=== PATIENT | female | born 1975 | race Caucasian/White ===

== ENCOUNTER 2019-11-24 18:02 | Outpatient (CLI) | payer OTHER, SELFPAY ==
--- NOTE | 2019-11-24 18:25 | XRR_ITS ---
PROCEDURE INFORMATION: Exam: XR Right Foot Exam date and time: 11/24/2019 6:34 PM Age: 43 years old Clinical indication: Pain; Toes; Right; Additional info: 2nd digit pain TECHNIQUE: Imaging protocol: XR Right foot. Views: Frontal and lateral views. COMPARISON: MRI Foot w/o RIGHT* [id number] 08/27/2019 7:28 AM FINDINGS: Bones/joints: Healing 3rd digit proximal metaphyseal fracture, with relatively mature periosteal reaction. Fifth distal interphalangeal joint fusion, a normal variant. Soft tissues: Normal. Other findings: No specific 2nd digit abnormality identified, as visualized XR/XR foot RT 2V [id number] IMPRESSION: Subacute 3rd proximal phalangeal fracture. .
== END 2019-11-24 18:03 | disposition home or self-care (01) ==
PROVIDERS: Family Provider Registered Nurse; PCP Registered Nurse; Visit Provider Registered Nurse
DX: S92.911A Unspecified fracture of right toe(s), initial encounter for closed fracture (principal); X58.XXXA Exposure to other specified factors, initial encounter
CPT/HCPCS: 73620

== ENCOUNTER 2019-11-25 16:16 | Outpatient (CLI) | payer OTHER, SELFPAY ==
--- NOTE | 2019-11-25 16:00 | MR_ITS ---
WS: [id number] MRI RIGHT FOOT without CONTRAST. COMPARISON: 08/27/2019, foot radiograph 11/24/2019 Multiplanar, multisequence imaging is performed without contrast. Partially healed fracture involving the proximal phalanx of the third toe. Decreased T1 and proton de nsity signal throughout a large portion of the proximal phalanx. Minimal increased T2 signal suggesti ng healing. There is an increased T2 signal between the second and third proximal phalanges along the plantar surface. This is just slightly position posterior to the second toe. This area of increased T2 and STIR signal measures 10 x 5 mm. Mass is closely associated and abutting the LEFT interdigital nerve. No erosions or new fractures. MR/MR foot RT wo con* [id number] IMPRESSION: 1. Healing proximal third phalanx fracture. 2. No new fracture. 3. Soft tissue nodule between the second and third proximal phalanges measures 10 x 5 mm. Abuts the second interdigital nerve. MRI appearance of a Mann's n euroma although this is positioned more between the proximal phalanges and the metatarsal heads.
== END 2019-11-25 16:17 | disposition home or self-care (01) ==
LOC: RADSHAW 16:19
PROVIDERS: Family Provider Registered Nurse; PCP Registered Nurse; Visit Provider Registered Nurse
DX: S92.911A Unspecified fracture of right toe(s), initial encounter for closed fracture (principal); X58.XXXA Exposure to other specified factors, initial encounter
CPT/HCPCS: 73718

== ENCOUNTER → 2019-12-17 08:18 | Outpatient (BNVA) | payer OTHER, SELFPAY | PROVIDERS: Family Provider Registered Nurse; PCP Registered Nurse; Visit Provider Registered Nurse | DX: Z01.818 Encounter for other preprocedural examination (principal) | CPT/HCPCS: 80053; 85025 ==

== ENCOUNTER → 2020-02-02 11:20 | Outpatient (BNVA) | payer OTHER, SELFPAY | PROVIDERS: Family Provider Registered Nurse; PCP Registered Nurse; Visit Provider Obstetrics & Gynecology | DX: N87.1 Moderate cervical dysplasia (principal); N93.9 Abnormal uterine and vaginal bleeding, unspecified | CPT/HCPCS: 88175 ==

== ENCOUNTER → 2020-02-03 09:13 | Outpatient (BNVA) | payer OTHER, SELFPAY | PROVIDERS: Family Provider Registered Nurse; PCP Registered Nurse; Visit Provider Obstetrics & Gynecology | DX: N87.1 Moderate cervical dysplasia (principal) | CPT/HCPCS: 88305 ==

== ENCOUNTER 2020-02-18 06:42 | Day surgery (SDC) | payer OTHER, SELFPAY ==
[2020-02-17 10:41] VITALS: BMI 32.1
[2020-02-17 15:26] VITALS: BMI 31.8
--- NOTE | 2020-02-18 | SCC_ITS ---
Procedure Done: Excision of neuroma second intermetatarsal space right foot CPT code 42584. 10 seconds of fluoroscopic guidance, for a cumulative dose of 0.12 mGy, was provided to Dr. Velazquez by the radiology department. C-arm images of the RIGHT foot were saved for the patient's permanent record. [facility]
--- NOTE | 2020-02-18 | XR_ITS ---
WS: [id number] XR foot RT 2V [id number] REASON FOR EXAM: CORRECTION angular deformity 2nd right toe FINDINGS: A screws seen through the second proximal phalanx correcting the deformity previously descr ibed. XR/XR foot RT 2V [id number] IMPRESSION: Good positioning internal fixation of the proximal second phalanx.
--- NOTE | 2020-02-18 05:31 | P.HP_ITS ---
Providers/Chief Complaint Primary Care Provider: RADHA Roman Chief Complaint: lesion of plantar nerve right History of Present Illness Shena Avelar is a 44 year old female with recalcitrant right forefoot pain. Patient has had pain at her right second metatarsal phalangeal joint with a progression of a deformity where the second toe is elevating and overriding medially over the hallux. She has pain with everyday activities. Previous treatments have consisted of NSAIDs, activity modifications including decreased exercise regimens, offloading with cam boot as well as strap down splinting without relief. Patient's MRI is consistent with possible Mann's neuroma at the right foot second intermetatarsal space this area is less painful for her however this is symptomatic Review of Systems General: Reports: 10 or more systems reviewed and unremarkable except in HPI and below Const: Denies: fever or chills Eyes: Denies: change in vision Card: Denies: chest pain or palpitations Resp: Denies: shortness of breath or productive cough GI: Denies: abdominal pain, nausea or vomiting : Denies: flank pain Musc: Reports: extremity pain, joint pain, joint stiffness, limited range of motion and deformity Skin/Breast: Reports: skin tenderness; Denies: rash Neuro: Reports: difficulty walking; Denies: numbness in extremities, changes in sensation or frequent falls Psych: Denies: suicidal ideation Riley/Lymph: Denies: easy bruising Medications/Allergies Home Medications Medication Instructions Recorded Confirmed Last Taken Type fluoxetine 20 mg capsule 20 mg PO DAILY 11/04/19 02/18/20 02/18/20 History baclofen 10 mg tablet 10 mg PO TID 30 Days #90 tab 01/05/20 02/18/20 02/18/20 Rx telmisartan 20 mg tablet 10 mg PO DAILY tab 02/16/20 02/18/20 02/18/20 History Allergies Allergy/AdvReac Type Severity Reaction Status Date / Time No Known Allergies Allergy Verified 02/18/20 07:05 PFSH PFSH: Social History Smoking and tobacco status: never smoked Alcohol intake: never Additional social history: - Tobacco Use: Denies current or past use Alcohol Use: Drinks socially; one drink every 2-3 months on average Drug Use: Denies Work/Study Status: 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 The following is a focused bilateral lower extremity exam. VASCULAR: Dorsalis pedis and posterior tibial arteries palpable +2. Capillary refill time less than 3 seconds to the distal hallux bilaterally. Calf is supple and nontender proximally and distally. No pedal edema appreciated. Pedal hair growth present. NEUROLOGICAL: Epicritic and protopathic sensations grossly intact to the lower extremities. +2 Achilles tendon reflex noted bilaterally. Negative Tinel sign upon percussion of lower extremity nerves. Protective sensation intact with monofilament right forefoot however there is a diminished sensation at the right second toe compared to adjacent toes. DERMATOLOGICAL: Lower extremity skin is well-hydrated, normal texture and turgor. There are no open sores or lesions noted to the lower extremities. No erythema or ecchymosis present to the bilateral legs and feet. MUSCULOSKELETAL: Pain to palpation at right second intermetatarsal space with dorsal and plantar pressure. Positive Marla's click. Pain with [id number] compression of the second and third metatarsal heads. No pain to palpation at right third proximal phalanx base. Muscle strength is 5 out of 5 in all 3 cardinal planes to right foot and ankle. Const: COMMON NORMALS: no apparent distress, oriented x3 and alert Lymph: LYMPHATIC: No lymphedema Resp: COMMON NORMALS: normal respiratory effort, no use of accessory muscles and clear to auscultation bilaterally EFFORT & INSPECTION: Yes able to speak in complete sentences Cardio: COMMON NORMALS: regular rate, regular rhythm, S1 normal heart sound, S2 normal heart sound, no murmurs and peripheral pulses 2+ throughout Extremity: COMMON NORMALS: normal capillary refill, no calf tenderness and no pedal edema GENERAL: No edema, No pulses abnormal and Yes monofilament exam performed RIGHT LOWER EXTREMITY: Yes ankle joint and Yes foot & digits Neuro: COMMON NORMALS: oriented x3 SENSORIUM/ORIENTATION: Yes alert GAIT: Yes normal gait and No assistive device used SENSORY EXAM: Yes extremities MOTOR EXAM: strength 5/5 throughout Skin: HAIR: normal NAILS: normal A&P Assessment and plan (1) Hammertoe of second toe of right foot: Status: Acute (2) Metatarsalgia, right foot: Status: Acute (3) Mann's neuroma of second interspace of right foot: Status: Acute Patient examined and evaluated, findings and treatment options discussed with patient at length. Despite conservative treatment consisting of activity modifications, stretching exercises, [id number] NSAIDs, offloading with cam boot and strapped on splinting she has had persistent pain and symptomatic to the point where it affects her everyday life. Recommending surgical repair at this time consisting of primary repair of the plantar plate right second metatarsal phalangeal joint, correction of angular deformity of right second hammertoe and possible Mann's neuroma excision versus tenolysis. Patient is agreeable and wishes to proceed. Can be performed risks include pain, bleeding, numbness, infection, swelling, bruising, painful scar, failure to alleviate pain, failure to correct deformity and recurrence of deformity, damage to adjac ent soft tissue structures and need for further surgical intervention. Surgery can be performed under MAC anesthesia outpatient with local block at the right foot. Duration of surgery approximately 90 minutes. 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
[2020-02-18 07:04] VITALS: BP 119/73; PULSE 83; RESP 18; TEMP 36.3; O2SAT 97
[2020-02-18 07:12] LABS: OR HCG Qualitative Urine Negative (Negative)
--- NOTE | 2020-02-18 07:34 | P.ANESASSM_ITS ---
Pre-Anesthetic Assessment Pre-Anesthetic Assessment: Height/Weight: Height 1.6 m Weight 81.647 kg Temp Pulse Resp BP Pulse Ox 97.4 F L 83 18 119/73 97 02/18/20 07:04 02/18/20 07:04 02/18/20 07:04 02/18/20 07:04 02/18/20 07:04 Preop Diagnosis: Hammertoe deformity right second toe, Mann's neuroma right second interspace Proposed Procedure: Operation Date: 02/18/20 08:10 Proposed Procedures p Correction of angular deformity second toe with poss neuroma excision right foot [id number] 45658 G57.61(Right) - Patricio Velazquez DPM Familial anesthetic complications: PONV, scopolamine patch worked Was Beta Cosme taken within 24 hours: N/A Last intake: Intake NPO > 8 hrs Last Liquid Date 02/17/20 Last Solid Date 02/17/20 Social: Social History: No alcohol and No tobacco Exam: Pre-Anes Outpt Exam: alert, oriented x 3, clear to auscultation bilaterally and regular rate & rhythm Airway: Cervical ROM: WNL MP: 1 Dentition: Full Pulmonary: Pulmonary: None reported CV/HEM: CV/HEM: HTN : : None reported Hepatic: Hepatic: None reported GI: GI: None reported Metabolic: Metabolic: None reported Musc/skel: Comments: R 2nd toe neuroma Neuropsych: Neuropsych: None reported Anesthetic Plan: ASA status: 2 Anesthesia: MAC Risk of > 500 ml blood loss (7ml/kg in children): No PFSH Anesthesia PFSH: Social History Smoking and tobacco status: never smoked Alcohol intake: never Additional social history: - Tobacco Use: Denies current or past use Alcohol Use: Drinks socially; one drink every 2-3 months on average Drug Use: Denies Work/Study Status: 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
--- NOTE | 2020-02-18 07:53 | W.PM.OPSUD ---
Surgery/Procedure H&P Update DATE OF PROCEDURE: February 18, 2020 DATE H&P PERFORMED: 02/18/20 H&P UPDATE INFORMATION: I have reviewed H&P completed within last 30 days, I have examined patient prior to procedure, No changes to prior documentation and H&P is in [facility] on date indicated PREOP DIAGNOSIS: Hammertoe deformity right second toe, Mann's neuroma right second interspace PLANNED PROCEDURE: Operation Date: 02/18/20 08:10 Proposed Procedures p Correction of angular deformity second toe with poss neuroma excision right foot [id number] G57.61(Right) - Patricio Velazquez DPM
[2020-02-18] MEDS: sodium chloride 0.9% 1,000 ML 30 ML IV (08:02)
[2020-02-18] MEDS: scopolamine 1.5 Patch 1 PATCH TRANSDERMA (08:06)
[2020-02-18 09:36] VITALS: BP 112/65; PULSE 85; RESP 18; TEMP 36.8; O2SAT 95
[2020-02-18 10:15] VITALS: BP 110/77; PULSE 71; RESP 18; O2SAT 97
--- NOTE | 2020-02-20 21:25 | PM.OP ---
Operative Report Date of procedure: February 18, 2020 Pre-op Diagnosis: Hammertoe deformity right second toe, Mann's neuroma right second interspace Post-op diagnosis: same Post-op Findings: Plantar plate tear right second metatarsal phalangeal joint. Mann's neuroma right second intermetatarsal space. Procedure Done: Excision of neuroma second intermetatarsal space right foot CPT code 13527. Correction of angular deformity right second toe CPT code 67943. Implants: [place] 28 TenoTac Specimens removed/disposition: Right second intermetatarsal space neuroma sent to pathology Pathology: Right second intermetatarsal space neuroma sent to pathology for review Surgeon: Patricio Velazquez D.P.M. Vice President Talent Management: James Anesthesia: MAC Estimated blood loss: 2 mL IV fluids: None Urine output: None Complications: None Findings: Neuroma right foot second intermetatarsal space. Plantar plate tear with angular deformity of the right second toe deviating medially and dorsally overriding the great toe. Condition: stable Disposition: PACU Brief History: Ms. Avelar is a pleasant 44-year-old female has had persistent pain to the right forefoot. She has failed conservative treatment consisting of offloading, decreased activity, NSAIDs, toe alignment splints, supportive shoes with orthotics as well as offloading with cam boot. She has had a progressive deformity of her right second toe that has begun to override the hallux this is painful for her she also on MRI it has findings consistent with Mann's neuroma this correlates clinically to pain at the second intermetatarsal space with positive Marla's click. At this point given her poor response to conservative measures recommending excision of Mann's neuroma right second metatarsal space along with correction of hammertoe angular deformity with primary plantar plate repair of the second metatarsal phalangeal joint. Procedure: Under mild sedation the patient was brought to the operating room and placed on the operating table in supine position. A timeout was performed. Anesthesia was then administered by the anesthesia service. Local anesthesia was injected by myself consisting of 20 cc of 0.5% Marcaine plain and a second ray block fashion. Well-padded pneumatic tourniquet was applied to the right ankle. Right lower extremity was then scrubbed, prepped and draped utilizing normal aseptic technique. Right foot was examined a weighted with an Esmarch bandage and the tourniquet was inflated to 250 mmHg. Attention was directed to the plantar aspect of the right forefoot where a linear longitudinal incision was made subsecond metatarsal head with dissection carried down through the fat pad and down to the second metatarsal phalangeal joint plantar capsule and plantar plate structure utilizing a combination of sharp and blunt technique. Care was taken to retract and preserve all neurovascular and tendinous structures. All bleeders were ligated and cauterized as necessary. Self-retaining retractor was employed to maintain visualization of vital structures there was a attenuation of the lateral collateral ligaments and plantar plate at the plantar lateral aspect of the second metatarsal phalangeal joint fibrotic tissue was sharply excised and primary repair was performed with a single interrupted suture. [place] 28 TenoTac was also employed to augment the repair with a flexor tendon transfer utilizing manufacture technique the TenoTac was inserted at the metaphyseal flare of the proximal phalanx second digit with realignment of the flexor tendons in a position to bolster the repair and additional correction of the angular deformity that was fully reduced in all 3 cardinal planes of the second toe. Dissection was carried somewhat laterally and the second intermetatarsal nerve was visualized at the bifurcation it was bulbous and consistent with Mann's neuroma this was transected at its most distal and proximal margins and sent to pathology for review. Incision site was dressed with copious amounts of sterile saline solution. Placement of TenoTac was visualized on 3 views fluoroscopy and noted to be excellent with improved position of the second toe. 10 cc of Exparel was introduced at the medial and lateral aspect of the incision subcutaneously utilizing recommended technique. Incision was closed in a single layer skin only with 3-0 Prolene this was by design to reduce inflammatory response and aid in pain-free cicatrix when healing at the plantar forefoot. Incision site was dressed with Adaptic, sterile 4 x 4's, Kerlix followed by application of well-padded multilayer compressive posterior splint with foot in neutral position and ankle neutral position. Tourniquet was deflated and a prompt hyperemic response was noted to all distal digits of the right foot. Patient tolerated the procedure well and was transferred to the PACU with vital signs stable and vascular status intact. Following a period of postoperative monitoring she will be discharged home is to remain strict nonweightbearing elevate her right foot at all times while at rest. Was given my cell phone number and is to contact with any postoperative questions or concerns. Was also given a prescription for pain medication to be taken judiciously.
== END 2020-02-18 10:15 | disposition home or self-care (01) ==
PROVIDERS: Anesthesiology; PCP Registered Nurse; Visit Provider Podiatrist Foot & Ankle Surgery
PROC: (CPT 28296; principal; 2020-02-18 08:05)
PROC: (CPT 28080; 2020-02-18 08:05)
DX: M20.41 Other hammer toe(s) (acquired), right foot (principal); G57.61 Lesion of plantar nerve, right lower limb; I10 Essential (primary) hypertension
CPT/HCPCS: 28313; 64782; 12345; 73620; 76000; 81025; 84703; C1713; C9290; J0690; J1100; J2001; J2250; J2405; J2704; J3490; J7030

== ENCOUNTER → 2020-03-16 13:38 | Outpatient (BNVA) | payer OTHER, SELFPAY | PROVIDERS: PCP Registered Nurse; Visit Provider Podiatrist Foot & Ankle Surgery | DX: Z98.890 Other specified postprocedural states (principal); S92.911A Unspecified fracture of right toe(s), initial encounter for closed fracture; X58.XXXA Exposure to other specified factors, initial encounter | CPT/HCPCS: 73630 ==

== ENCOUNTER → 2020-03-23 08:37 | Outpatient (BNVA) | payer OTHER, SELFPAY | PROVIDERS: PCP Registered Nurse; Visit Provider Podiatrist Foot & Ankle Surgery | DX: M79.671 Pain in right foot (principal); S92.911A Unspecified fracture of right toe(s), initial encounter for closed fracture; X58.XXXA Exposure to other specified factors, initial encounter | CPT/HCPCS: 73630 ==

== ENCOUNTER 2020-04-13 10:33 | Inpatient (IN) | payer OTHER, SELFPAY ==
[2020-04-11 10:51] LABS: OR HCG Qualitative Urine Negative (Negative)
[2020-04-11 11:02] LABS: Basophils % 0.3 %; Eosinophils # 0.1 10^3/uL (0.0-0.8); Eosinophils % 0.8 %; Hematocrit 42.4 % (37.0-47.0); Hemoglobin 13.3 g/dL (11.5-15.3); Lymphocytes # 2.7 10^3/uL (0.8-4.8); Lymphocytes % 27.2 %; Mean Corpuscular HGB Conc 31.4 g/dL (30.0-36.0); Mean Corpuscular Hemoglobin 30.1 pg (28.0-34.0); Mean Corpuscular Volume 95.9 fL (81-99); Mean Platelet Volume 9.3 fL (7.4-10.4); Monocytes # 0.7 10^3/uL (0.2-0.9); Monocytes % 7.2 %; Neutrophils # 6.3 10^3/uL (1.8-7.7); Neutrophils % 64.2 %; Nucleated Red Blood Cells % 0 %; Platelet Count 391 10^3/cmm (130-400); Red Blood Count 4.42 10^6/uL (4.1-5.3); White Blood Count 9.9 10^3/uL (4.0-10.0)
[2020-04-11 11:08] LABS: Alanine Aminotransferase 17 U/L (0-33); Alkaline Phosphatase 67 IU/L (35-105); Anion Gap 15.8 (5-19); Aspartate Amino Transferase 18 U/L (0-32); Blood Urea Nitrogen 11 mg/dL (6-20); Calcium 9.5 mg/dL (8.5-10.5); Carbon Dioxide 27 mmol/L (22-29); Chloride 99 mmol/L (98-107); Globulin 3.3 g/dL (1.3-4.6); Glomerular Filtration Rate 90.5 mL/min (90-130); Glucose 79 mg/dL (65-115); Osmolality Calculated 281 mOsm/kg (285-295); Potassium 3.8 mmol/L (3.5-5.1); Sodium 138 mmol/L (136-145); Total Bilirubin 0.2 mg/dL (0.15-1.2); Total Protein 7.3 g/dL (6.6-8.7)
--- NOTE | 2020-04-11 12:09 | P.ANESASSM_ITS ---
Pre-Anesthetic Assessment Pre-Anesthetic Assessment: Height/Weight: Height 1.6 m Weight 81.647 kg Preop Diagnosis: Menorrhagia, dysmenorrhea, ANGELINE-2 Proposed Procedure: Operation Date: 04/13/20 07:00 Proposed Procedures p Total Laparoscopic Hysterectomy 08335 48313 43921 N93.9 N87.1(Not Applicable) - Bertin Kirk MD s Possible Total Abdominal Hysterectomy(Not Applicable) - Bertin Kirk MD s Bilateral salpingectomy, possible bilateral oophorectomy, 50227(Not Applicable) - Bertin Kirk MD Familial anesthetic complications: PONV Was Beta Cosme taken within 24 hours: N/A Social: Social History: No alcohol and No tobacco Exam: Pre-Anes Outpt Exam: alert, oriented x 3, clear to auscultation bilaterally and regular rate & rhythm Airway: Submandibular: WNL Cervical ROM: WNL MP: 2 Dentition: Full History/ROS: No significant history except as noted Pulmonary: Pulmonary: None reported CV/HEM: CV/HEM: HTN : : None reported Hepatic: Hepatic: None reported GI: GI: None reported Metabolic: Metabolic: None reported Musc/skel: Musc/skel: None reported Neuropsych: Neuropsych: None reported Anesthetic Plan: ASA status: 2 Anesthesia: Anesthesia Evaluation and General Risk of > 500 ml blood loss (7ml/kg in children): No PFSH Anesthesia PFSH: Medical History Abnormal uterine bleeding Has been having symptoms since approximately 2005 getting worse over time. Evaluation was negative. ANGELINE II (cervical intraepithelial neoplasia II) Status post LEEP-currently undergoing follow-up Pap smears Hypertension Diagnosed with hypertension in 2017 and is controlled on medication managed by primary care provider No pertinent past medical history Patient denies history of PE/DVT/clotting disorders, asthma, lung, liver heart, thyroid, kidney disease, or diabetes. Primary care provider: RADHA Roman Surgical History Hx of bilateral breast reduction surgery In 2009 Hx of section x 3 1996, 2001, 2005 Hx of toe surgery 02/25/2020 for fractured toe; ORIF S/P abdominoplasty (~12/24/19) Performed by Dr. Hernandez in [place] S/P LEEP (~02/04/19) LEEP procedure performed on 02/04/[address] Cruz [address] [facility] for persistent ANGELINE-1. Pathology showed ANGELINE-2 with positive margins S/P tonsillectomy Performed at the age of 4 S/P tubal ligation (~2005) Performed at the time of her third in 2005 Family History Mother Hypertension Mother Hyperlipidemia Grandfather Prostate cancer Paternal Denies family history of Colon cancer Ovarian cancer Diabetes Heart disease Breast cancer Uterine cancer Thyroid condition Stroke Social History Smoking and tobacco status: never smoked Alcohol intake: never Additional social history: - Tobacco Use: Denies current or past use Alcohol Use: Drinks socially; one drink every 2-3 months on average Drug Use: Denies Work/Study Status: 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 Female Reproductive History: Date of last menstrual period: 04/11/20 Data Anesthesia CBC & Chem 7: 04/11/20 10:30 04/11/20 10:30 Other Labs: Laboratory Results - last 48 hr 04/11/20 04/11/20 04/11/20 10:17 10:30 10:30 WBC 9.9 RBC 4.42 Hgb 13.3 Hct 42.4 MCV 95.9 MCH 30.1 MCHC 31.4 RDW 13.0 Plt Count 391 MPV 9.3 Neut % (Auto) 64.2 Lymph % (Auto) 27.2 [place] % (Auto) 7.2 Eos % (Auto) 0.8 Baso % (Auto) 0.3 Neut # (Auto) 6.3 Lymph # (Auto) 2.7 [place] # (Auto) 0.7 Eos # (Auto) 0.1 Baso # (Auto) 0.0 Nucleated RBC % (auto) 0 Nucleated RBCs # 0.0 Sodium 138 Potassium 3.8 Chloride 99 Carbon Dioxide 27 Anion Gap 15.8 BUN 11 Creatinine 0.7 GFR Calculation 90.5 Glucose 79 Calculated Osmolality 281 L Calcium 9.5 Total Bilirubin 0.2 AST 18 ALT 17 Alkaline Phosphatase 67 Total Protein 7.3 Albumin 4.0 Globulin 3.3 Urine HCG, Qual Negative Blood Type Rho(D) Type Antibody Screen 04/11/20 10:30 WBC RBC Hgb Hct MCV MCH MCHC RDW Plt Count MPV Neut % (Auto) Lymph % (Auto) [place] % (Auto) Eos % (Auto) Baso % (Auto) Neut # (Auto) Lymph # (Auto) [place] # (Auto) Eos # (Auto) Baso # (Auto) Nucleated RBC % (auto) Nucleated RBCs # Sodium Potassium Chloride Carbon Dioxide Anion Gap BUN Creatinine GFR Calculation Glucose Calculated Osmolality Calcium Total Bilirubin AST ALT Alkaline Phosphatase Total Protein Albumin Globulin Urine HCG, Qual Blood Type O Positive Rho(D) Type Positive Antibody Screen Negative Cardiac Studies: No Data to Display
[2020-04-13] VITALS (24 sets, daily range): BP systolic 98–130; BP diastolic 60–81; PULSE 60–88; RESP 12–20; TEMP 36.4–36.9; O2SAT 92–100
[2020-04-13] MEDS: sodium chloride 0.9% 1,000 ML 30 ML IV (06:15)
--- NOTE | 2020-04-13 06:25 | P.ANESUD_ITS ---
Pre-Anesthetic Update Pre-Anesthetic Assessment: Date of Surgery/Procedure: 04/13/20 Preop Jemima gnosis: Hammertoe deformity right second toe, Mann's neuroma right second interspace Proposed Procedure: Operation Date: 04/13/20 07:00 Proposed Procedures p Total Laparoscopic Hysterectomy 15952 66452 22508 N93.9 N87.1(Not Applicable) - Bertin Kirk MD s Possible Total Abdominal Hysterectomy(Not Applicable) - Bertin Kirk MD s Bilateral salpingectomy, possible bilateral oophorectomy, 06354(Not Applicable) - Bertin Kirk MD Any changes to Pre-Anesthetic Assessment?: No Last Intake: Intake Last Liquid Date 04/12/20 Last Liquid Time 23:45 Last Solid Date 04/12/20 Last Solid Time 19:00 Labs Last 48hrs: Laboratory Results - last 48 hr 04/11/20 04/11/20 04/11/20 10:17 10:30 10:30 WBC 9.9 RBC 4.42 Hgb 13.3 Hct 42.4 MCV 95.9 MCH 30.1 MCHC 31.4 RDW 13.0 Plt Count 391 MPV 9.3 Neut % (Auto) 64.2 Lymph % (Auto) 27.2 [place] % (Auto) 7.2 Eos % (Auto) 0.8 Baso % (Auto) 0.3 Neut # (Auto) 6.3 Lymph # (Auto) 2.7 [place] # (Auto) 0.7 Eos # (Auto) 0.1 Baso # (Auto) 0.0 Nucleated RBC % (a uto) 0 Nucleated RBCs # 0.0 Sodium 138 Potassium 3.8 Chloride 99 Carbon Dioxide 27 Anion Gap 15.8 BUN 11 Creatinine 0.7 GFR Calculation 90.5 Glucose 79 Calculated Osmolal ity 281 L Calcium 9.5 Total Bilirubin 0.2 AST 18 ALT 17 Alkaline Phosphata se 67 Total Protein 7.3 Albumin 4.0 Globulin 3.3 Urine HCG, Qual Negative Blood Type Rho(D) Type Antibody Screen 04/11/20 10:30 WBC RBC Hgb Hct MCV MCH MCHC RDW Plt Count MPV Neut % (Auto) Lymph % (Auto) [place] % (Auto) Eos % (Auto) Baso % (Auto) Neut # (Auto) Lymph # (Auto) [place] # (Auto) Eos # (Auto) Baso # (Auto) Nucleated RBC % (a uto) Nucleated RBCs # Sodium Potassium Chloride Carbon Dioxide Anion Gap BUN Creatinine GFR Calculation Glucose Calculated Osmolal ity Calcium Total Bilirubin AST ALT Alkaline Phosphata se Total Protein Albumin Globulin Urine HCG, Qual Blood Type O Positive Rho(D) Type Positive Antibody Screen Negative Vitals: Temperature 98.5 F 04/13/20 05:58 Temperature Source Temporal Artery S can 04/13/20 05:58 Pulse Rate 72 04/13/20 05:58 Respiratory Rate 16 04/13/20 05:58 Blood Pressure 119/74 04/13/20 05:58 Blood Pressure Soc[place] n 89 04/13/20 05:58 Pulse Oximetry 98 04/13/20 05:58 Oxygen Delivery Me thod 04/13/20 05:58 Exam: Pre-Anes Outpt Exam: alert, oriented x 3, clear to auscultation bilaterally and regular rate & rhythm Other Pertinent Information: Other Pertinent Information: Phentermine taken 10 days ago Cardiac Studies: No Data to Display
--- NOTE | 2020-04-13 06:58 | P.HPUD_ITS ---
Surgery/Procedure H&P Update DATE OF PROCEDURE: April 13, 2020 DATE H&P PERFORMED: 03/28/20 H&P UPDATE INFORMATION: I have reviewed H&P completed within last 30 days, I have examined patient prior to procedure, No changes to prior documentation and [place] is in [facility] [place] indicated PREOP DIAGNOSIS: AUB, ANGELINE 2 PLANNED PROCEDURE: Operation Date: 04/13/20 07:00 Proposed Procedures p Total Laparoscopic Hysterectomy [id number] N93.9 N87.1(Not Applicable) - Bertin Kirk MD s Possible Total Abdominal Hysterectomy(Not Applicable) - Bertin Kirk MD s Bilateral salpingectomy, possible bilateral oophorectomy, 03677(Not Applicable) - Bertin Kirk MD
--- NOTE | 2020-04-13 08:17 | SUR.OPER ---
0746 s/o updated of surgical status
--- NOTE | 2020-04-13 08:45 | SUR.OPER ---
0845 s/o updated of surgical status.
--- NOTE | 2020-04-13 09:56 | SUR.OPER ---
0952 s/o updated of surgical status
--- NOTE | 2020-04-13 10:31 | P.OP_ITS ---
Operative Report Date of procedure: April 13, 2020 OPERATIVE REPORT Date of surgery: 04/13/2020 Date of dictation: 04/13/2020 Preoperative diagnosis: 44-year-old 5 para 3-0-2-3, abnormal uterine bleeding-adenomyosis, ANGELINE 2 with persistent abnormal Pap smears; history of abdominoplasty and 3 C-sections. History of tubal ligation. Postoperative diagnosis/findings: 10-week size anteverted uterus, normal ovaries bilaterally with tubes showing signs of previous surgery. Dense adhesions of the bladder onto the uterus. Dense additions of the fascia and rectus muscles from prior abdominoplasty. Procedure done: Total abdominal hysterectomy, left salpingo-oophorectomy, right salpingectomy Specimens removed/disposition of specimens: Uterus, cervix, bilateral tubes and left ovary Surgeon: Dr. Bertin Cruz acute care certified nursing assistant: María Telles Anesthesia: General endotracheal tube anesthesia Estimated blood loss: 300 ml Intravenous fluids: 1700 mL of LR Urine output: 400 mL of urine at the end of procedure. Medications: As per anesthesia records Complications: None, patient was extubated and taken to the recovery room in a stable condition PROCEDURE: After consent was obtained patient was taken to the operating room where she was placed under general anesthesia. Sequential compression boots was placed. Pelvic exam done showed limited mobility of the uterus and on detailed examination of the abdomen given her abdominoplasty and change location of the umbilicus and short infraumbilical space decision was made to avoid laparoscopic surgery and perform open hysterectomy. Patient's leg were placed in supine position after vaginal prep and Mallory catheter were placed. She was prepped and draped in the usual sterile fashion in a dorsal supine position. A Pfannenstiel incision was made and it was carried down to the underlying fascia immediately below her abdominoplasty scar. A lot of oozing was noted in the subcutaneous plane which was cauterized with silver nitrate. Once the subcutaneous plane was entered there was a pocket of clear serous fluid-probably seroma from previous abdominoplasty. The fascia was identified. Fascia was incised in the midline and extended laterally sharply. Rectus muscles were in the midline. This was difficult given her previous abdominal surgery-abdominoplasty and multiple adhesions. Peritoneum was identified and was sharply entered. This area was palpated and no adhesions were noted intra- abdominally to the anterior abdominal wall. Peritoneal incision was extended laterally. Good hemostasis was achieved. A O'Roque retractor was then placed and the bowel was packed away in the upper abdomen with wet laparotomy sponges. Care was taken to avoid any pressure points on the skin. The pelvis was inspected. Uterus appeared normal with tubes showing signs of previous surgery and normal ovaries with a left ovary containing a simple cyst-likely follicular cyst. No other abnormalities were noted other than what was mentioned previously. The left ovarian vessels were identified and a window was made in the broad ligament under this and the abdominal [place]ouyant clamped over the IP ligament and was cauterized close to the ovary twice taking care to stay away from the sidewall and the ureter. Good hemostasis was achieved. The right round ligament was clamped cut and suture ligated with 0 Vicryl suture. This is again done on the left side without any difficulty. -Using the abdominal Vuoyant and trying to stay close to the uterus we proceeded in a caudal fashion through the broad ligament up until the lower uterine segment. The broad ligament incision was extended inferiorly and carried over the lower uterine segment. Dense lesions were noted from the bladder onto the lower uterine segment from her previous surgeries and sharp dissection was used in this area to help separate the bladder away from the uterus and cervix. The bladder was noted to be intact without any tears. The uterine vessels were skeletonized clamped and tied off with suture. This was done first on the right and then on the left side without any difficulty. Using straight clamps we continued inferiorly clamping the parametria, cutting and suture ligating this area until the bottom of the cervix was reached. At this point, sharply curved clamps were placed across the top of the vagina and the remaining portion of the cervix excised. With this the uterus and cervix, right fallopian tube remnant and the left fallopian tube and ovary were removed. The cervix was inspected and noted to be complete. The corners of the cuff were secured with 0 Vicryl suture in a Shannon fashion bilaterally taking care to avoid lateral spread. The remaining portion of the vaginal cuff was closed with 0 Vicryl suture in an interrupted [id number]-rz-[id number] fashion. The area was thoroughly inspected hemostasis was achieved with utjuhj-cm-ejosv sutures. There was some oozing noted from the posterior aspect of the bladder where extensive adhesio lysis had been done. Decision was made to back for the bladder and it was backfilled with 250 to 300 mL of indigo stained fluid and the bladder was noted to be well distended. No spillage of dye was noted and no defects identified in the bladder. Bilateral ureters were visualized and good peristalsis was noted. The pelvis was irrigated once again and small area of oozing near the left was made hemostatic with a vxxdlj-ss-jjanx suture. With this good hemostasis was achieved. Surgicel was placed over the vaginal cuff. Surgicel was also placed over the posterior aspect of the bladder. Good hemostasis was noted within the pelvis. The packing and retractor was removed. The rectus muscle was reapproximated with mattress sutures and good hemostasis was achieved and the rectus muscle layer. The fascia was then closed with oh loop PDS in a continuous fashion and good reapproximation was obtained. The subcutaneous layer was irrigated and noted to be hemostatic. It was reapproximated using 2-0 plain sutures in a continuous fashion. This was done in 2 layers. The skin was then reapproximated in a subcuticular fashion using 4-0 Monocryl. Pressure dressing was applied onto the abdomen. Lap, instrument and needle counts were correct x2. Patient was extubated without difficulty and taken to the recovery room in a stable condition. Mallory catheter was left in place. Pre-op Diagnosis: AUB, ANGELINE 2
--- NOTE | 2020-04-13 10:49 | SUR.PHASEI ---
1049- ORAL AIRWAY OUT, SIMPLE MASK AT 6LPM, SAT 100%
[2020-04-13] MEDS: sodium chloride 0.9% 1,000 ML 125 ML (11:37)
[2020-04-13] MEDS: HYDROmorphone 1 mg/mL INJ 1 mL 1.5 MG IVP ×2 (14:48→19:58)
[2020-04-13 16:48] LABS: Basophils % 0.1 %; Hematocrit 39.3 % (37.0-47.0); Hemoglobin 12.3 g/dL (11.5-15.3); Lymphocytes # 0.5 10^3/uL (0.8-4.8); Lymphocytes % 2.4 %; Mean Corpuscular HGB Conc 31.3 g/dL (30.0-36.0); Mean Corpuscular Hemoglobin 29.6 pg (28.0-34.0); Mean Corpuscular Volume 94.7 fL (81-99); Mean Platelet Volume 9.5 fL (7.4-10.4); Monocytes # 0.2 10^3/uL (0.2-0.9); Monocytes % 0.9 %; Neutrophils # 18.6 10^3/uL (1.8-7.7); Neutrophils % 96.2 %; Nucleated Red Blood Cells % 0 %; Platelet Count 350 10^3/cmm (130-400); Red Blood Count 4.15 10^6/uL (4.1-5.3); Red Cell Distribution Width 13.1 % (12.1-15.1); White Blood Count 19.3 10^3/uL (4.0-10.0)
[2020-04-13] MEDS: dextrose 5%-lactated ringers 1,000 ML 125 ML IV (19:56)
[2020-04-13] MEDS: ondansetron 2 mg/ML SDV 2 mL 4 MG IVP (20:15)
[2020-04-14] MEDS: ondansetron 2 mg/ML SDV 2 mL 4 MG IVP ×2 (01:08→06:52)
[2020-04-14 01:11] VITALS: RESP 16
[2020-04-14] MEDS: HYDROmorphone 1 mg/mL INJ 1 mL 1.5 MG IVP ×2 (01:11→08:42)
[2020-04-14] MEDS: dextrose 5%-lactated ringers 1,000 ML 125 ML IV ×3 (03:44→19:23)
[2020-04-14 04:00] VITALS: BP 115/75; PULSE 66; RESP 16; TEMP 36.7; O2SAT 99
[2020-04-14 04:20] LABS: Hematocrit 35.8 % (37.0-47.0); Hemoglobin 11.1 g/dL (11.5-15.3); Mean Corpuscular Hemoglobin 29.4 pg (28.0-34.0); Mean Platelet Volume 9.2 fL (7.4-10.4); Platelet Count 351 10^3/cmm (130-400); Red Blood Count 3.77 10^6/uL (4.1-5.3); Red Cell Distribution Width 13.3 % (12.1-15.1); White Blood Count 14.2 10^3/uL (4.0-10.0)
[2020-04-14 08:27] VITALS: PULSE 84; RESP 16; O2SAT 97
[2020-04-14 08:42] VITALS: RESP 16; O2SAT 95
[2020-04-14 08:53] VITALS: BP 117/77; PULSE 69; RESP 15; TEMP 36.7; O2SAT 94
--- NOTE | 2020-04-14 11:25 | PC.NURSE ---
Patient ambulated 3 laps in hallway, tolerated well. Denied feeling any dizziness, weakness or lightheadedness. Patient said it feels better being up than it does being in bed. Patient decided to brush her teeth after she ambulated back to her room.
--- NOTE | 2020-04-14 13:12 | PC.NURSE ---
Assisted patient with putting on the abdominal binder at this time.
--- NOTE | 2020-04-14 14:23 | P.PN_ITS ---
Subjective Subjective: Interval history: - SUBJECTIVE- Ms. Avelar is feeling okay today. She is a little tired. Nausea has improved since this morning. She denies any vomiting. Has not yet passed flatus but is burping. Catheter and SCDs are in place. She is ambulated a little bit this morning. Feels a lot less groggy today compared to yesterday. She denies fever , chills, shortness of breath and chest pain. She does report having a headache and has just taken ibuprofen about 30 minutes ago to help with this. She does use the incentive spirometer. OBJECTIVE- BLOOD pressure-117/77 mmHg Pulse-69 beats per minute Temperature-98.1 Fahrenheit Abdomen-soft, nontender, no rebound, no guarding-hypoactive bowel sounds Incision: Clean dry and intact with Steri-Strips Legs: No calf tenderness, no edema. ASSESSMENT AND PLAN: 44-year-old 3 para 3-0-0-3 status post total abdominal hysterectomy left salpingo-oophorectomy and right salpingectomy for ANGELINE-2/AUB---Postoperative day #1 -Continue routine care -She is ambulated only a little today-she was encouraged to take 5 more laps around the nurses station and at that point we will plan on discontinuing the Mallory catheter. If she is unable to void after removal of Mallory catheter it may be replaced and she understands this. -Details of surgery reviewed with patient. -Hypoactive bowel sounds and patient was a little nauseous this morning-continue n.p.o. till she passes gas and will then advance diet to clear liquid diet. -P.o. pain medication with sips of fluid. Blood pressure is normal and we will restart blood pressure medication tomorrow once she tolerates p.o. -Hemoglobin stable-repeat CBC tomorrow morning -Anticipate discharge home in the next 1 to 2 days depending upon return to bowel function and how she does with pain. Vitals/I&O/Wt Last Vital Signs Temp 98.1 F 04/14/20 08:53 Pulse 69 04/14/20 08:53 Resp 15 04/14/20 08:53 BP 117/77 04/14/20 08:53 Pulse Ox 94 04/14/20 08:53 04/13/20 04/14/20 04/14/20 22:59 06:59 14:59 Intake Total 339.583 / 8496.622 9076.083 / 2666.666 833.333 / 833.333 Output Total 700 / 1850 400 / 2250 1275 / 1275 Balance -360.417 / -938.136 9773.083 / 416.666 -441.667 / -441.667 Physical Exam Urinary Catheter Management^: Mallory: Cath Placed During This Visit: yes Urinary Catheter Date of Insertion: 04/13/20 Urinary Catheter Time of Insertion: 07:35 Data : 04/14/20 03:53 04/11/20 10:30 Attestations Medical Necessity Statement*: Patient will need to stay for the next 2 to 3 days to recover from open surgery. 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
[2020-04-14] MEDS: HYDROcodone-acetaminophen 5-325 mg Tablet PO ×2 (16:17→22:24)
[2020-04-14 16:18] VITALS: BP 138/84; PULSE 88; RESP 18; TEMP 36.8; O2SAT 96
--- NOTE | 2020-04-14 20:06 | PC.NURSE ---
1st post-void residual at 1930 after voiding 150ml - 28ml via bladder scanner
[2020-04-15 04:10] VITALS: BP 142/84; PULSE 92; RESP 16; TEMP 36.7
[2020-04-15] MEDS: dextrose 5%-lactated ringers 1,000 ML 125 ML IV (04:14)
[2020-04-15 05:59] LABS: Basophils % 0.2 %; Eosinophils # 0.1 10^3/uL (0.0-0.8); Eosinophils % 0.6 %; Hematocrit 36.8 % (37.0-47.0); Hemoglobin 11.3 g/dL (11.5-15.3); Lymphocytes # 2.5 10^3/uL (0.8-4.8); Lymphocytes % 22.7 %; Mean Corpuscular HGB Conc 30.7 g/dL (30.0-36.0); Mean Corpuscular Hemoglobin 29.4 pg (28.0-34.0); Mean Corpuscular Volume 95.8 fL (81-99); Monocytes # 0.8 10^3/uL (0.2-0.9); Monocytes % 7.7 %; Neutrophils # 7.4 10^3/uL (1.8-7.7); Neutrophils % 68.5 %; Nucleated Red Blood Cells % 0 %; Platelet Count 363 10^3/cmm (130-400); Red Blood Count 3.84 10^6/uL (4.1-5.3); Red Cell Distribution Width 13.4 % (12.1-15.1); White Blood Count 10.8 10^3/uL (4.0-10.0)
[2020-04-15] MEDS: docusate sodium 100 mg Capsule PO ×2 (08:24→17:48)
[2020-04-15 08:36] VITALS: BP 146/88
[2020-04-15] MEDS: losartan 50 mg Tablet PO (08:36)
[2020-04-15] MEDS: fluoxetine 20 mg Capsule PO (09:16)
[2020-04-15 11:42] VITALS: BP 145/86; PULSE 73; RESP 18; TEMP 36.6; O2SAT 97
--- NOTE | 2020-04-15 16:00 | P.PN_ITS ---
Subjective Subjective: Interval history: Ms. Avelar is feeling much better today. She is ambulated well and has been consistently passing flatus. She has tolerated clears without any difficulty and denies any nausea today. She feels much better after having a shower. Denies calf pain, fever, chills, nausea, vomiting, shortness of breath or chest pain. Would like to restart her fluoxetine. She has been voiding without difficulty since catheter removal and continues to have SCDs while in bed. No other questions or concerns. Pain is well controlled with p.o. pain medication. OBJECTIVE- BLOOD pressure-140/78 mmHg Pulse-88 beats per minute Temperature-98.1 Fahrenheit Abdomen-soft, nontender, no rebound, no guarding-normoactive bowel sounds Incision: Clean dry and intact with Steri-Strips Legs: No calf tenderness, no edema. ASSESSMENT AND PLAN: 44-year-old 3 para 3-0-0-3 status post total abdominal hysterectomy left salpingo-oophorectomy and right salpingectomy for ANGELINE-2/AUB---Postoperative day #2 -Continue routine care -Encourage continued ambulation. -Mallory catheter has been discontinued with normal post void residuals. -Normoactive bowel sounds and patient is passing flatus-tolerating clears well will advance to full liquid diet and if tolerated well will advance to regular diet. -Continue p.o. pain medication and discontinue IV -Hemoglobin stable-white count within normal limits. Do not anticipate any further blood work during this hospitalization -Anticipate discharge home tomorrow if advance of diet goes without any problems. Vitals/I&O/Wt Last Vital Signs Temp 98.1 F 04/15/20 20:30 Pulse 88 04/16/20 05:39 Resp 16 04/16/20 05:39 BP 139/88 04/16/20 05:39 Pulse Ox 99 04/15/20 16:12 04/15/20 04/16/20 04/16/20 22:59 06:59 14:59 Intake Total 980 / 2462.084 Output Total 1050 / 2550 Balance -70 / -87.916 Physical Exam Urinary Catheter Management^: Mallory: Cath Placed During This Visit: yes, but has since been removed by the nurse Reason for Continuing Indwelling Catheter: Decision to DC Catheter Urinary Catheter Date of Insertion: 04/13/20 Urinary Catheter Time of Insertion: 07:35 Date Urinary Catheter Removed: 04/14/20 Time Urinary Catheter Discontinued: 18:09 Data : 04/15/20 04:15 04/11/20 10:30 Attestations Medical Necessity Statement*: Patient will likely need to stay 1 more day for postoperative recovery 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
[2020-04-15 16:12] VITALS: BP 146/88; PULSE 68; RESP 16; TEMP 36.8; O2SAT 99
[2020-04-15] MEDS: HYDROcodone-acetaminophen 5-325 mg Tablet PO (17:52)
[2020-04-15 20:30] VITALS: BP 119/72; PULSE 83; RESP 18; TEMP 36.7
[2020-04-16 05:39] VITALS: BP 139/88; PULSE 88; RESP 16
--- NOTE | 2020-04-16 07:31 | PM.DCS ---
Discharge Providers Date of Admission: 04/13/20 10:33 Date of Discharge: April 16, 2020 Attending Provider at Admission: Bertin Kirk MD Attending Provider at Discharge: Bertin Kirk MD Primary Care Provider: RADHA Roman Diagnoses at Discharge Discharge Diagnosis (1) ANGELINE II (cervical intraepithelial neoplasia II): Status: Acute Problem details: Status post LEEP-currently undergoing follow-up Pap smears (2) Abnormal uterine bleeding: Status: Acute Problem details: Has been having symptoms since approximately 2005 getting worse over time. Evaluation was negative. Reason for Visit Reason for Visit: abnormal uterine bleeding Hospital Course Discharge Summary: Ms. Avelar is a 44-year-old 3 para 3-0-0-3 who presented on 04/13/2020 for scheduled hysterectomy for abnormal uterine bleeding as well as persistent ANGELINE-2 despite LEEP procedure. She had no new complaints on the day of procedure. HOSPITAL COURSE: She underwent an uncomplicated total abdominal hysterectomy, bilateral salpingectomy with left oophorectomy on 04/13/2020-see operative report for details. She did well on postoperative day 0 and was largely groggy and was out of bed to chair and n.p.o. She was advanced to clears but was nauseous and was returned back to n.p.o. status until return of bowel activity. On postoperative day #1 she was ambulating well, tolerating clear liquid diet. Pain was well-controlled with by mouth and IV pain medication. She denied nausea, vomiting, fever, chills, shortness of breath, leg pain. She had minimal vaginal bleeding. Mallory catheter was kept overnight and she had adequate urine output. On postoperative day #1 and 2 she continued to do well with stable vital signs and stable hemoglobin at 11. Incision was clean dry and intact with Steri-Strips. Mallory catheter was removed and patient was able to void with minimal residual noted on bladder scan. She ambulated well started passing flatus and then was given a clear liquid diet. On postoperative day 2 in the evening she was advanced to regular diet which she tolerated well. She was discharged home on postoperative day #3 in a stable condition. Warning signs for wound infection, cuff infection, DVT/PE were reviewed with her. Post surgical activity restrictions were also reviewed with her at all her questions were answered to her satisfaction. EXAM AT DISCHARGE: Gen.: No acute distress Heart: S1-S2 heard, regular rate and rhythm Lungs: Clear to auscultation bilaterally Abdomen: Soft, nondistended, normoactive bowel sounds, minimal tenderness around incision. Incision: Clean dry and intact with Steri-Strips. Legs: No calf tenderness, no pedal edema. CONDITION AT DISCHARGE: Stable Physical Exam Urinary Catheter Management^: Mallory: Cath Placed During This Visit: yes, but has since been removed by the nurse Reason for Continuing Indwelling Catheter: Decision to DC Catheter Urinary Catheter Date of Insertion: 04/13/20 Urinary Catheter Time of Insertion: 07:35 Date Urinary Catheter Removed: 04/14/20 Time Urinary Catheter Discontinued: 18:09 Discharge Data Data Completed and Pending: Pending at discharge Category Date Time Status Pathology: Surgic al [PTH] Routine Pth 04/13/20 10:05 Ordered Vitals: Last Vital Signs Temp 98.1 F 04/15/20 20:30 Pulse 88 04/16/20 05:39 Resp 16 04/16/20 05:39 BP 139/88 04/16/20 05:39 Pulse Ox 99 04/15/20 16:12 Discharge Plan Discharge Patient Disposition: Home, Self-Care Prescriptions: No Action telmisartan [Micardis] 20 mg tablet 10 mg PO DAILY RF: 0 baclofen 10 mg tablet 10 mg PO TID 30 Days Qty: 90 RF: 3 phentermine 37.5 mg capsule 37.5 mg PO DAILY PRN (Reason: Weight Gain) RF: 0 (DME) crutch Misc See Rx Instructions .ROUTE .MEDSUPPLY Qty: 2 RF: 0 fluoxetine [Prozac] 20 mg capsule 20 mg PO DAILY Qty: 90 RF: 0 Patient Instructions: Fluoxetine (By mouth), Baclofen (By mouth), Phentermine (By mouth), Telmisartan (By mouth), Abdominal Hysterectomy (DC), General Anesthesia (GEN), Open Salpingo-oophorectomy (DC), OB Discharge Report, OB Food/Drug Interaction Guide Discharge Attestations Time Spent in Discharge Care*: greater than 30 min Quality Metrics Clinical Quality Measures During this hospital stay, did patient experience: None Coding Level of Care Code 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
[2020-04-16 08:13] VITALS: BP 130/86
[2020-04-16] MEDS: docusate sodium 100 mg Capsule PO (08:13)
[2020-04-16] MEDS: losartan 50 mg Tablet PO (08:13)
[2020-04-16] MEDS: HYDROcodone-acetaminophen 5-325 mg Tablet PO (08:14)
[2020-04-16] MEDS: fluoxetine 20 mg Capsule PO (08:14)
[2020-04-16 08:16] VITALS: BP 130/86; PULSE 80; RESP 16; TEMP 36.7; O2SAT 98
== END 2020-04-16 10:00 | disposition home or self-care (01) | DRG 743 ==
LOC: OBGYN 14:07
PROVIDERS: Admitting Provider Obstetrics & Gynecology; PCP Registered Nurse; Visit Provider Obstetrics & Gynecology
PROC: 0UT90ZZ Resection of Uterus, Open Approach (ICD-10-PCS; CPT 58150; 2020-04-13 07:00)
PROC: 0UT90ZZ Resection of Uterus, Open Approach (ICD-10-PCS; CPT 58720; 2020-04-13 07:00)
DX: N93.9 Abnormal uterine and vaginal bleeding, unspecified (principal); N87.1 Moderate cervical dysplasia; I10 Essential (primary) hypertension
CPT/HCPCS: 12345; 36415; 80053; 81025; 84703; 85025; 85027; 86850; 86900; 88307; 96375; J0131; J0690; J1100; J1170; J2001; J2250; J2405; J2550; J2704; J2710; J3010; J3490; J7030

== ENCOUNTER 2020-06-02 05:43 | Day surgery (SDC) | payer OTHER, SELFPAY ==
[2020-06-01 09:18] VITALS: BMI 31.8
--- NOTE | 2020-06-02 | XR_ITS ---
WS: [id number] EXAM: FLUOROSCOPY FOR VISUALIZATION DURING RIGHT FIRST RAY BUNION SURGERY AND HALLUX VALGUS REDUCTION DATE OF EXAMINATION: 06/02/2020, 0807 hours COMPARISON: Right foot films from 03/23/2020 HISTORY: Patient is 44 years old with right foot deformity FLUOROSCOPY TIME: 4 seconds FINDINGS: Fluoroscopy provided to the surgical service for visualization during right first ray surgery. Post s urgical changes of a shaving osteotomy of the medial first metatarsal head as well as osteotomy with fixation screws is seen. Osteotomy involving the proximal phalanx of the great toe with bone staple i n place. [place] also placed in the second metatarsal head for presumed osteotomy with shift procedure . Please see operative report for further details. XR/XR toe RT min 2V [id number] IMPRESSION: Fluoroscopy provided to the surgical service for visualization during right gre at toe surgery. Dedicated post procedure imaging recommended.
--- NOTE | 2020-06-02 | SCC_ITS ---
Procedure Done: Right bunionectomy with double osteotomy CPT code 31138 4 seconds of fluoroscopic guidance, for a cumulative dose of 0.6 mGy, was provided to Dr. Velazquez by the radiology department. C-arm images of the RIGHT toe were saved for the patient's permanent record. [facility] HOSPITALAdeline
[2020-06-02 05:53] VITALS: BP 119/88; PULSE 83; RESP 18; TEMP 36.3; O2SAT 98
[2020-06-02] MEDS: sodium chloride 0.9% 1,000 ML 30 ML IV (06:05)
[2020-06-02] MEDS: scopolamine 1.5 Patch 1 PATCH TRANSDERMA (06:09)
--- NOTE | 2020-06-02 06:34 | PM.OPSURHP ---
Providers/Chief Complaint Primary Care Provider: RADHA Roman Chief Complaint: Bunion Right bunion. Right hammertoe second toe. History of Present Illness Ms. Avelar is a pleasant 44-year-old female with history of painful bunion and hammertoe of the right foot. History of right second hammertoe correction with recurrence of deformity. She is seen bedside in preop for updated H&P and surgical intervention. She has been n.p.o. since midnight. Review of Systems General: Reports: 10 or more systems reviewed and unremarkable except in HPI and below Const: Denies: fever(s) or chills Eyes: Denies: change in vision Card: Denies: chest pain or palpitations Resp: Denies: dyspnea or productive cough GI: Denies: abdominal pain, nausea or vomiting : Denies: flank pain Musc: Reports: extremity pain, joint pain, joint stiffness, limited range of motion and deformity Skin/Breast: Reports: skin tenderness; Denies: rash Neuro: Reports: difficulty walking; Denies: numbness in extremities, sensory changes or frequent falls Psych: Denies: suicidal ideation Riley/Lymph: Denies: easy bruising Medications/Allergies Home Medications Medication Instructions Recorded Confirmed Last Taken Type telmisartan 20 mg tablet 10 mg PO DAILY #45 tab 04/20/20 06/01/20 06/01/20 Rx baclofen 10 mg tablet 10 mg PO TID 30 Days #90 tab 05/23/20 06/01/20 06/01/20 Rx fluoxetine 20 mg capsule 20 mg PO DAILY #90 cap 05/29/20 06/01/20 06/01/20 Rx Allergies Allergy/AdvReac Type Severity Reaction Status Date / Time No Known Allergies Allergy Verified 06/01/20 09:16 PFSH PFSH: Medical History ANGELINE II (cervical intraepithelial neoplasia II) Hypertension Diagnosed with hypertension in 2017 and is controlled on medication managed by primary care provider No pertinent past medical history Patient denies history of PE/DVT/clotting disorders, asthma, lung, liver heart, thyroid, kidney disease, or diabetes. Primary care provider: RADHA Roman Surgical History Hx of bilateral breast reduction surgery In 2009 Hx of section x 3 1996, 2001, 2005 Hx of toe surgery 02/25/2020 for fractured toe; ORIF S/P abdominoplasty (~12/24/19) Performed by Dr. Hernandez in [place] [employer] S/P hysterectomy 04/13/2020---Total abdominal hysterectomy with left salpingo-oophorectomy and right salpingectomy by Dr. Cruz at [facility]. -Pathology showed benign cervix, secretory endometrium without atypia, myometrium with adenomyosis and benign left ovary and fallopian tubes. Paratubal cysts present. S/P LEEP (~02/04/19) LEEP procedure performed on 02/04/[address] Cruz at [facility] for persistent ANGELINE-1. Pathology showed ANGELINE-2 with positive margins S/P tonsillectomy Performed at the age of 4 S/P tubal ligation (~2005) Performed at the time of her third in 2005 Family History Mother Hypertension Mother Hyperlipidemia Grandfather Prostate cancer Paternal Denies family history of Colon cancer Ovarian cancer Diabetes Heart disease Breast cancer Uterine cancer Thyroid condition Stroke Social History Smoking and tobacco status: never smoked Alcohol intake: never Female Reproductive History: Date of last menstrual period: 04/11/20 Vital Signs Vitals Signs: Last Vital Signs Temp 97.3 F L 06/02/20 05:53 Pulse 83 06/02/20 05:53 Resp 18 06/02/20 05:53 BP 119/88 06/02/20 05:53 Pulse Ox 98 06/02/20 05:53 Weight: Weight last 48 hrs Weight 180 lb Physical Exam Narrative: EXAM NARRATIVE: GENERAL: Patient is alert and oriented ?3 and in no acute distress. The following is a focused bilateral lower extremity exam. VASCULAR: Dorsalis pedis and posterior tibial arteries palpable +2. Capillary refill time less than 3 seconds to the distal hallux bilaterally. Calf is supple and nontender proximally and distally. No pedal edema appreciated. Pedal hair growth present. NEUROLOGICAL: Epicritic and protopathic sensations grossly intact to the lower extremities. +2 Achilles tendon reflex noted bilaterally. Negative Tinel sign upon percussion of lower extremity nerves. DERMATOLOGICAL: Lower extremity skin is well-hydrated, normal texture and turgor. There are no open sores or lesions noted to the lower extremities. No erythema or ecchymosis present to the bilateral legs and feet. MUSCULOSKELETAL: Hallux abductovalgus deformity with osseous prominence of dorsal medial aspect of the right first metatarsal phalangeal joint. Right first metatarsal phalangeal joint dorsiflexion 65 degrees, plantarflexion 40 degrees. Range of motion is without crepitus or pain. She has tenderness to palpation at the medial aspect of her bunion deformity. Hallux is not track bound. Mild collapse of the medial longitudinal arch which is fully re-created with elevation of the hallux. Mild pronation observed throughout the gait cycle with early heel off. Hammertoe deformity of the right second with transverse plane dominance is deviated medially this is reducible. Resp: COMMON NORMALS: normal respiratory effort, No retractions, No use of accessory muscles and clear to auscultation bilaterally EFFORT & INSPECTION: Yes able to speak in complete sentences and Yes symmetric chest movement Cardio: COMMON NORMALS: regular rate, regular rhythm, S2 normal heart sound present and Peripheral pulses 2+ throughout A&P Additional A&P Information atient examined and evaluated, weightbearing x-rays reviewed shows increased first intermetatarsal space and hallux abductovalgus deformity. Patient has transverse plane deformity of the right second toe. To address patient's host of complaints and bony deformities recommending bunionectomy, Ankur osteotomy and revisional plantar plate repair 06/02/20, can be performed outpatient, MAC anesthesia, will update H&P morning of surgery. Risks include pain, bleeding, numbness, infection, transfer pressure, delayed union, nonunion, hardware failure, hardware irritation, persistent swelling, decreased range of motion, avascular necrosis, damage to adjacent soft tissue structures, DVT, need for further surgical intervention. MAC anesthesia, duration of procedure 90 minutes, outpatient. Coding Level of Care Code Acute Master [place] for Chg Fwd Exam Expanded Problem Focused
--- NOTE | 2020-06-02 06:38 | P.HPUD_ITS ---
Surgery/Procedure H&P Update DATE OF PROCEDURE: June 02, 2020 DATE H&P PERFORMED: 06/02/20 H&P UPDATE INFORMATION: I have reviewed H&P completed within last 30 days, I have examined patient prior to procedure, No changes to prior documentation and H&P is in [facility] EMR on date indicated PREOP DIAGNOSIS: Bunion deformity, plantar plate tear and hammertoe deformity second toe all right foot. PLANNED PROCEDURE: Operation Date: 06/02/20 07:00 Proposed Procedures p Right bunionectomy with double osteotomy 20359 M21.611(Right) - Patricio Velazquez DPM s Right second metatarsal Ankur osteotomy 93367 M25.871(Right) - Patricio Velazquez DPM s Correction of angular deformity right second toe 49081 M20.41(Right) - Patricio Velazquez DPM
--- NOTE | 2020-06-02 06:38 | W.PM.OPSUD ---
Surgery/Procedure H&P Update DATE OF PROCEDURE: June 02, 2020 DATE H&P PERFORMED: 06/02/20 H&P UPDATE INFORMATION: I have reviewed H&P completed within last 30 days, I have examined patient prior to procedure, No changes to prior documentation and H&P is in [facility] EMR on date indicated PREOP DIAGNOSIS: Bunion deformity, plantar plate tear and hammertoe deformity second toe all right foot. PLANNED PROCEDURE: Operation Date: 06/02/20 07:00 Proposed Procedures p Right bunionectomy with double osteotomy 26504 M21.611(Right) - Patricio Velazquez DPM s Right second metatarsal Ankur osteotomy 83514 M25.871(Right) - Patricio Velazquez DPM s Correction of angular deformity right second toe 94230 M20.41(Right) - Patricio Velazquez DPM
--- NOTE | 2020-06-02 07:02 | ANES.PREANE2 ---
Pre-Anesthetic Assessment Pre-Anesthetic Assessment: Height/Weight: Height 1.6 m Weight 81.647 kg Temp Pulse Resp BP Pulse Ox 97.3 F L 83 18 119/88 98 06/02/20 05:53 06/02/20 05:53 06/02/20 05:53 06/02/20 05:53 06/02/20 05:53 Preop Diagnosis: Bunion deformity, plantar plate tear and hammertoe deformity second toe all right foot. Proposed Procedure: Operation Date: 06/02/20 07:00 Proposed Procedures p Right bunionectomy with double osteotomy 14413 M21.611(Right) - Patricio Velazquez DPM s Right second metatarsal Ankur osteotomy 56312 M25.871(Right) - Patricio Velazquez DPM s Correction of angular deformity right second toe 23765 M20.41(Right) - Patricio Velazquez DPM Was Beta Cosme taken within 24 hours: N/A Last intake: Intake Last Liquid Date 06/01/20 Last Liquid Time 20:30 Last Solid Date 06/01/20 Last Solid Time 19:00 Social: Social History: No alcohol and No tobacco Exam: Pre-Anes Outpt Exam: alert, oriented x 3, clear to auscultation bilaterally and regular rate & rhythm Airway: Submandibular: WNL Cervical ROM: WNL MP: 2 Dentition: Full Pulmonary: Pulmonary: None reported CV/HEM: CV/HEM: HTN : : None reported Hepatic: Hepatic: None reported GI: GI: None reported Metabolic: Metabolic: None reported Musc/skel: Musc/skel: None reported Neuropsych: Neuropsych: Depression Anesthetic Plan: ASA status: 2 Anesthesia: MAC Risk of > 500 ml blood loss (7ml/kg in children): No Meds/Allergies Current Medications: Current Medications Generic Name Dose Route Start Last Admin Trade Name Freq PRN Reason Stop Dose Admin Sodium Chloride 1,000 mls @ 30 ml s/hr 06/02/20 05:45 06/02/20 06:05 Sodium Chloride 0.9% IV 06/03/20 05:44 30 mls/hr .Q24H SUPRIYA Administration PFSH Anesthesia PFSH: Medical History ANGELINE II (cervical intraepithelial neoplasia II) Hypertension Diagnosed with hypertension in 2017 and is controlled on medication managed by primary care provider No pertinent past medical history Patient denies history of PE/DVT/clotting disorders, asthma, lung, liver heart, thyroid, kidney disease, or diabetes. Primary care provider: RADHA Roman Surgical History Hx of bilateral breast reduction surgery In 2009 Hx of section x 3 1996, 2001, 2005 Hx of toe surgery 02/25/2020 for fractured toe; ORIF S/P abdominoplasty (~12/24/19) Performed by Dr. Hernandez in [place] S/P hysterectomy 04/13/2020---Total abdominal hysterectomy with left salpingo-oophorectomy and right salpingectomy by Dr. Cruz at [facility]. -Pathology showed benign cervix, secretory endometrium without atypia, myometrium with adenomyosis and benign left ovary and fallopian tubes. Paratubal cysts present. S/P LEEP (~02/04/19) LEEP procedure performed on 02/04/[address] Cruz at [facility] for persistent ANGELINE-1. Pathology showed ANGELINE-2 with positive margins S/P tonsillectomy Performed at the age of 4 S/P tubal ligation (~2005) Performed at the time of her third in 2005 Family History Mother Hypertension Mother Hyperlipidemia Grandfather Prostate cancer Paternal Denies family history of Colon cancer Ovarian cancer Diabetes Heart disease Breast cancer Uterine cancer Thyroid condition Stroke Social History Smoking and tobacco status: never smoked Alcohol intake: never Female Reproductive History: Date of last menstrual period: 04/11/20 Data Anesthesia Cardiac Studies: No Data to Display
--- NOTE | 2020-06-02 08:54 | P.OP_ITS ---
Operative Report Date of procedure: June 02, 2020 Pre-op Diagnosis: Bunion deformity, plantar plate tear and hammertoe deformity second toe all right foot. Post-op diagnosis: same Post-op Findings: None Procedure Done: Right bunionectomy with double osteotomy CPT code 24690 Right second metatarsal Ankur osteotomy CPT code 82837 Correction of angular deformity right second toe CPT code 15164 Specimens removed/disposition: None Pathology: none sent Surgeon: Patricio Velazquez D.P.M. Bi Tester: Todd Anesthesia: MAC Estimated blood loss: 5 mL Tourniquet time: 89 minutes IV fluids: None Urine output: None Complications: None Findings: None Condition: stable Disposition: PACU Brief History: Ms. Avelar is a 44-year-old pleasant female with history of a mild bunion deformity to her right foot and recurrence of hammertoe deformity of her right second toe with transverse plane dominance, second toe deviates medially. Recommended [place] bunionectomy, Luis osteotomy and Ankur osteotomy of the second metatarsal to allow the second metatarsal head to shift more medially to help balance soft tissues at the second metatarsal phalangeal joint as well as capsulotomy release medially and capsular repair laterally. Patient is agreeable wishes to proceed. Risks include pain, bleeding, numbness, infection, overcorrection of the deformity resulting in varus deformity, stiffness and decreased range of motion at the metatarsal phalangeal joints, transfer pressure, damage to adjacent soft tissue structures, neuritis, delayed union, malunion, failure of hardware, painful hardware, recurrence of deformity need for further surgical intervention. Procedure: Under mild sedation the patient was brought to the operating room and placed on the operating table in supine position. Timeout was performed. Anesthesia was administered by the anesthesia service. Local anesthesia injected by myself consisting of 30 cc of 0.5% Marcaine plain and a right second ray block and Burns block fashion. Well-padded pneumatic tourniquet was applied to the right ankle. The right lower extremity was then scrubbed, prepped and draped utilizing normal aseptic technique. Right foot was examined a weighted with an Esmarch bandage and the tourniquet was inflated to 250 mmHg. Attention was directed to the dorsal medial aspect of the right first metatarsal phalangeal joint where a linear longitudinal incision was made medial and parallel to the extensor hallucis longus tendon. Incision was made with a #15 blade 7 cm in length approximately and carried down through subcutaneous tissue utilizing sharp and blunt technique. Care was taken to retract and preserve all neurovascular and tendon structures. All bleeders were ligated and cauterized as necessary. Capsulotomy was performed and the head of the first metatarsal was visualized there was hypertrophied bony overgrowth at the medial aspect this was transected with a sagittal saw and passed from the operative field. [place] guide was inserted at the medial aspect of the first metatarsal head followed by a through and through V-shaped chevron osteotomy with the apex pointed distally in the head of the first metatarsal translated laterally impacted back on the osteotomy site and temporarily fixated. Next utilizing standard AO technique a partially-threaded cannulated headed screw 3.0 x 18 mm was inserted across the osteotomy site with excellent bony apposition and compression noted this was confirmed with fluoroscopy and did not violate the first metatarsal phalangeal joint articular surface. Temporary fixation was removed all rough edges were smoothed and the remaining medial shelf was transected with a sagittal saw and passed from the operative field. The incision site was flushed with sterile saline solution. Dissection of capsular and periosteal attachments at the medial aspect of the proximal phalanx base medially was then performed followed by a Luis osteotomy maintaining a lateral cortical hinge bone wedge was passed from operative field after having completed the osteotomy and the osteotomy was impacted with excellent bone to bone apposition followed by fixation with a 8 mm x 8 mm x 8 mm nitinol staple with excellent bony apposition and compression noted. Incision site was flushed with copious amounts of sterile saline solution. Capsule was closed with the hallux held in a rectus position, closure was performed with 2-0 Vicryl. Subcutaneous tissue closed with 4-0 Vicryl maintaining a corrected anatomic position of the hallux. 3.0 millimeter screw and 8 mm staple were provided by [employer]. Attention was directed to the dorsal aspect of the right foot at the second toe where a transverse plane hammertoe deformity was appreciated while loading the forefoot the second toe deviated aggressively medially. A linear longitudinal incision made over the dorsal of the second metatarsal phalangeal joint with a #15 blade with dissection carried out sharply and bluntly down to the second metatarsal phalangeal joint care was taken to retract and preserve neurovascular and tendinous structures. All bleeders were ligated and cauterized as necessary. A longitudinal capsulotomy was performed and the head of the second metatarsal was visualized followed by a Ankur osteotomy utilizing a sagittal saw. The second metatarsal head was allowed to shift 2 mm proximal for shortening as well as 2 mm medially to help balance the second toe in a more anatomical and rectus position this was then fixated utilizing 2.0 snap off screws x2 provided by [place] [employer]. Dorsal shelf was transected and smoothed of all rough edges. Dorsal medial capsulotomy was then performed followed by collateral ligament repair laterally utilizing 2-0 Vicryl. While loading the forefoot the right second toe was in a more rectus corrected position in a relaxed state it deviated slightly laterally. Plantar plate was intact. Given the corrected position of second toe intraoperative decision making and thought process was to avoid any further plantar incision as this is been performed previously and revision of this would lead to increased risk for hypertrophied and painful scar in a weightbearing surface repair was adequate while loading the first ray and I was satisfied with the correction. The incision site was flushed with copious amounts of sterile saline solution. Capsule closed utilizing 2-0 Vicryl. Subcutaneous tissue closed utilizing 4-0 Vicryl and skin closed utilizing 5-0 Monocryl. Skin at the bunionectomy site was also reapproximated utilizing 5-0 Monocryl. Incision sites were dressed with benzoin and Steri-Strips followed by Adaptic, sterile 4 x 4's, Kerlix and Jenaro wrap. The second toe was splinted in a slightly plantarflexed position and the bunion in a rectus position. Tourniquet was deflated and a prompt hyperemic response was noted to the distal digits of the right foot. Cam boot was applied. Patient tolerated the procedure and anesthesia well and was transferred to the PACU with vital signs stable and vascular status intact. Following a period of postoperative monitoring she will be discharged home is to remain nonweightbearing to the right foot and elevate while at rest.
[2020-06-02 08:55] VITALS: BP 106/78; PULSE 90; RESP 18; TEMP 35.9; O2SAT 92
[2020-06-02 09:29] VITALS: BP 111/61; PULSE 61; RESP 18; O2SAT 96
--- NOTE | 2020-06-02 09:32 | PM.PACU ---
PACU note PACU note: VSS, good pain control. Post-Anesthesia Exam: awake Disposition: discharged
== END 2020-06-02 09:55 | disposition home or self-care (01) ==
PROVIDERS: PCP Registered Nurse; Visit Provider Podiatrist Foot & Ankle Surgery
PROC: (CPT 28297; principal; 2020-06-02 07:00)
PROC: (CPT 28308; 2020-06-02 07:00)
PROC: (CPT 28285; 2020-06-02 07:00)
DX: M21.611 Bunion of right foot (principal); M20.41 Other hammer toe(s) (acquired), right foot; I10 Essential (primary) hypertension
CPT/HCPCS: 28299; 28308; 28313; 12345; 73660; 76000; C1713; C9290; J0690; J2250; J2370; J2704; J2710; J3010; J3490; J7030

== ENCOUNTER → 2020-06-15 09:34 | Outpatient (BNVA) | payer OTHER, SELFPAY | PROVIDERS: PCP Registered Nurse; Visit Provider Podiatrist Foot & Ankle Surgery | DX: Z98.890 Other specified postprocedural states (principal); Z47.89 Encounter for other orthopedic aftercare | CPT/HCPCS: 73630 ==

== ENCOUNTER 2020-06-15 14:24 | Outpatient (CLI) | payer OTHER, SELFPAY | END 2020-06-15 14:25 | disposition home or self-care (01) | LOC: SPT 14:30 | PROVIDERS: PCP Registered Nurse; Visit Provider Podiatrist Foot & Ankle Surgery | DX: Z46.89 Encounter for fitting and adjustment of other specified devices (principal); Z98.890 Other specified postprocedural states | CPT/HCPCS: L3100 ==

== ENCOUNTER → 2020-06-29 13:40 | Outpatient (BNVA) | payer OTHER, SELFPAY | PROVIDERS: PCP Registered Nurse; Visit Provider Podiatrist Foot & Ankle Surgery | DX: S99.921A Unspecified injury of right foot, initial encounter (principal); X58.XXXA Exposure to other specified factors, initial encounter | CPT/HCPCS: 73630 ==

== ENCOUNTER → 2020-07-12 14:28 | Outpatient (BNVA) | payer OTHER, SELFPAY | PROVIDERS: PCP Registered Nurse; Visit Provider Podiatrist Foot & Ankle Surgery | DX: Z98.890 Other specified postprocedural states (principal) | CPT/HCPCS: 73630 ==

== ENCOUNTER → 2020-08-16 14:30 | Outpatient (BNVA) | payer OTHER, SELFPAY | PROVIDERS: PCP Registered Nurse; Visit Provider Podiatrist Foot & Ankle Surgery | DX: Z98.890 Other specified postprocedural states (principal); S99.929A Unspecified injury of unspecified foot, initial encounter | CPT/HCPCS: 73630 ==

== ENCOUNTER → 2020-12-07 08:08 | Outpatient (BNVA) | payer OTHER, SELFPAY | PROVIDERS: PCP Registered Nurse; Visit Provider Dermatology | DX: Z13.6 Encounter for screening for cardiovascular disorders (principal) | CPT/HCPCS: 80061; 82947; 83036 ==

== ENCOUNTER → 2020-12-25 09:46 | Outpatient (BNVA) | payer OTHER, SELFPAY | PROVIDERS: PCP Registered Nurse; Visit Provider Registered Nurse | DX: L57.0 Actinic keratosis (principal) | CPT/HCPCS: 88304 ==

== ENCOUNTER → 2021-01-02 10:28 | Outpatient (BNVA) | payer OTHER, SELFPAY | PROVIDERS: PCP Registered Nurse; Visit Provider Registered Nurse | DX: L66.4 Folliculitis ulerythematosa reticulata (principal) | CPT/HCPCS: 85025; 85651; 86038; 86140; 86431 ==

== ENCOUNTER 2021-01-10 13:05 | Outpatient (CLI) | payer OTHER, SELFPAY ==
--- NOTE | 2021-01-10 13:14 | MM_ITS ---
WS: [id number] BILATERAL SCREENING DIGITAL MAMMOGRAM WITH CAD HISTORY: SCREENING COMPARISON: 09/13/2019 and 12/05/2015 and 08/12/2018 Bilateral CC and MLO views submitted. Computer aided detection analyzed. Breast composition: There are scattered areas of fibroglandular density. No suspicious masses, microc alcifications or architectural distortion. MM/[place] [id number] IMPRESSION: BI-RADS: 1-Negative FOLLOW UP: 1 Year Follow-up
== END 2021-01-10 13:06 | disposition home or self-care (01) ==
PROVIDERS: PCP Registered Nurse; Visit Provider Registered Nurse
DX: Z12.31 Encounter for screening mammogram for malignant neoplasm of breast (principal)
CPT/HCPCS: 77067

== ENCOUNTER → 2021-01-31 11:41 | Outpatient (BNVA) | payer OTHER, SELFPAY | PROVIDERS: PCP Registered Nurse; Visit Provider Registered Nurse | DX: R76.8 Other specified abnormal immunological findings in serum (principal) | CPT/HCPCS: 86225; 86235 ==

== ENCOUNTER → 2021-03-08 08:54 | Outpatient (BNVA) | payer OTHER, SELFPAY | PROVIDERS: PCP Registered Nurse; Visit Provider Internal Medicine Rheumatology | DX: M25.50 Pain in unspecified joint (principal); M25.519 Pain in unspecified shoulder; R76.8 Other specified abnormal immunological findings in serum; Z83.2 Family history of diseases of the blood and blood-forming organs and certain disorders involving the immune mechanism; Z80.8 Family history of malignant neoplasm of other organs or systems; H53.9 Unspecified visual disturbance | CPT/HCPCS: 99204 ==

== ENCOUNTER 2021-03-08 10:43 | Outpatient (CLI) | payer OTHER, SELFPAY ==
--- NOTE | 2021-03-08 10:51 | XR_ITS ---
WS: [id number] Exam: XR chest 2V* [id number] Date/Time of Exam: 03/08/2021 11:07 AM Reason For Exam: M25.50 - Pain in unspecified joint Findings: The lungs are clear and fully expanded. Costophrenic angles are sharp. No infiltrates. Bronchovascula r relief appears normal. Cardiac silhouette is unremarkable. Bony elements are intact. XR/XR chest 2V* [id number] IMPRESSION: Unremarkable chest radiograph.
== END 2021-03-08 10:44 | disposition home or self-care (01) ==
LOC: RAD 10:48
PROVIDERS: PCP Registered Nurse; Visit Provider Internal Medicine Rheumatology
DX: M25.50 Pain in unspecified joint (principal); Z83.2 Family history of diseases of the blood and blood-forming organs and certain disorders involving the immune mechanism
CPT/HCPCS: 71046

== ENCOUNTER → 2021-03-29 09:10 | Outpatient (BNVA) | payer OTHER, SELFPAY | PROVIDERS: PCP Registered Nurse; Visit Provider Registered Nurse | DX: Z11.52 Encounter for screening for COVID-19 (principal); Z20.822 Contact with and (suspected) exposure to COVID-19 | CPT/HCPCS: 87635 ==

== ENCOUNTER 2021-05-10 17:36 | Outpatient (CLI) | payer OTHER, SELFPAY ==
--- NOTE | 2021-05-10 17:43 | XR_ITS ---
WS: [id number] XR shoulder RT min 2V* [id number] REASON FOR EXAM: M75.00 - Adhesive capsulitis of unspecified shoulder FINDINGS: The joint spaces of the acromioclavicular joint and glenohumeral joint are intact and well preserved. No subchondral or other focal bony abnormality. No soft tissue abnormality. XR/XR shoulder RT min 2V* [id number] IMPRESSION: No significant bony or joint abnormality.
== END 2021-05-10 17:37 | disposition home or self-care (01) ==
LOC: RAD 17:39
PROVIDERS: PCP Registered Nurse; Visit Provider Registered Nurse
DX: M75.01 Adhesive capsulitis of right shoulder (principal)
CPT/HCPCS: 73030

== ENCOUNTER → 2021-05-18 08:53 | Outpatient (BNVA) | payer OTHER, SELFPAY | PROVIDERS: PCP Registered Nurse; Visit Provider Registered Nurse | DX: E66.9 Obesity, unspecified (principal); H53.9 Unspecified visual disturbance; Z68.31 Body mass index [BMI] 31.0-31.9, adult | CPT/HCPCS: 83036 ==

== ENCOUNTER → 2021-05-28 14:17 | Outpatient (BNVA) | payer OTHER, SELFPAY | PROVIDERS: PCP Registered Nurse; Visit Provider Obstetrics & Gynecology | DX: N87.1 Moderate cervical dysplasia (principal) | CPT/HCPCS: 88175 ==

== ENCOUNTER 2021-06-15 15:53 | Outpatient (CLI) | payer OTHER, SELFPAY ==
--- NOTE | 2021-06-15 16:45 | MR_ITS ---
WS: [id number] MRI RIGHT SHOULDER HISTORY: Chronic RIGHT shoulder pain. No trauma. COMPARISON: 05/10/2021 radiographs TECHNIQUE: Multiplanar sequences of the shoulder joint are submitted. Moderate AC joint arthritis. Small amount of edema in the distal clavicle and adjacent acromion. Ther e is soft tissue thickening and thickening of the capsule surrounding the AC joint. There is osteophy te and soft tissue encroachment upon the supraspinatus muscle and tendon. There is edema within the a djacent superior surface of the supraspinatus. 5 mm osteophyte from the undersurface of the acromion encroaching upon the distal supraspinatus tendon and muscle. No os acromion. Biceps tendon is in the bicipital groove but there is a small amount of increased fluid surrounding the biceps tendon. No tea r identified. Seen only on one signal is a 2 mm area of increased signal along the articular surface of the distal supraspinatus. Cannot confirm this is a tear. There is mild tendinopathy in the distal supraspinatus. The remaining tendons are intact. No muscle atrophy or edema. There is mild degenerative changes at the glenohumeral joint. There is asymmetry of the joint space with slight widening more anteriorly. I ntrasubstance degeneration within the labrum. No tear identified. MR/MR shoulder RT wo con* [id number] IMPRESSION: 1. Moderate AC joint arthritis with mild inflammatory changes encroaching upon and involving the adjacent supraspinatus muscle and tendon. 2. 5 mm osteophyte with mild encroachment upon the distal supraspinatus tendon and muscle. 3. Mild tendinopathy distal supraspinatus. Cannot confirm tendon tear. 4. Mild glenohumeral joint osteoarthritis with mild intrasubstance degeneratio n in the labrum.
== END 2021-06-15 15:54 | disposition home or self-care (01) ==
LOC: RADSHAW 15:57
PROVIDERS: PCP Registered Nurse; Visit Provider Registered Nurse
DX: M19.011 Primary osteoarthritis, right shoulder (principal); M25.711 Osteophyte, right shoulder
CPT/HCPCS: 73221

== ENCOUNTER → 2021-07-03 16:37 | Outpatient (BNVA) | payer OTHER, SELFPAY | PROVIDERS: PCP Registered Nurse; Visit Provider Obstetrics & Gynecology | DX: N90.89 Other specified noninflammatory disorders of vulva and perineum (principal) | CPT/HCPCS: 88305 ==

== ENCOUNTER 2021-10-31 10:33 | Outpatient (CLI) | payer OTHER, SELFPAY ==
--- NOTE | 2021-10-31 10:43 | XR_ITS ---
WS: [id number] Exam: XR chest 2V* [id number] Date/Time of Exam: 10/31/2021 10:55 AM Reason For Exam: HYPERTENSION Comparison 03/08/2021. Findings: The lungs are clear and fully expanded. Costophrenic angles are sharp. No infiltrates. Bronchovascula r relief appears normal. Cardiac silhouette is unremarkable. Bony elements are intact. XR/XR chest 2V* [id number] IMPRESSION: Unremarkable chest radiograph.
== END 2021-10-31 10:34 | disposition home or self-care (01) ==
LOC: RAD 10:35
PROVIDERS: PCP Registered Nurse; Visit Provider Nurse Practitioner Adult Health
DX: I10 Essential (primary) hypertension (principal)
CPT/HCPCS: 71046; 80048; 85025

== ENCOUNTER → 2022-05-27 08:12 | Outpatient (BNVA) | payer OTHER, SELFPAY | PROVIDERS: PCP Registered Nurse; Visit Provider Obstetrics & Gynecology | DX: N87.1 Moderate cervical dysplasia (principal); Z01.419 Encounter for gynecological examination (general) (routine) without abnormal findings | CPT/HCPCS: 87624 ==

== ENCOUNTER 2022-06-19 15:15 | Outpatient (CLI) | payer OTHER, SELFPAY ==
--- NOTE | 2022-06-19 16:00 | MM_ITS ---
WS: [id number] BILATERAL 3D TOMOSYNTHESIS DIGITAL SCREENING MAMMOGRAPHY WITH CAD CLINICAL INFORMATION: SCREENING HISTORY: Screening mammogram. No current complaints. COMPARISON: January 10, 2021 TECHNIQUE: Bilateral CC and MLO views. FINDINGS: History of bilateral breast reduction. Scattered fibroglandular densities bilaterally. No suspicious focal mass, asymmetry, calcifications, or architectural distortion. No evidence of malignancy. MM/[place] [id number] IMPRESSION: BI-RADS: 2-Benign FOLLOW UP: 1 Year Follow-up Recommend return to annual screening mammography.
== END 2022-06-19 15:16 | disposition home or self-care (01) ==
PROVIDERS: PCP Registered Nurse; Visit Provider Nurse Practitioner Women's Health
DX: Z12.31 Encounter for screening mammogram for malignant neoplasm of breast (principal)
CPT/HCPCS: 77067

== ENCOUNTER → 2023-02-05 08:49 | Outpatient (BNVA) | payer OTHER, SELFPAY | PROVIDERS: PCP Registered Nurse; Visit Provider Registered Nurse | DX: Z02.1 Encounter for pre-employment examination (principal) | CPT/HCPCS: 80307 ==

== ENCOUNTER → 2023-06-10 15:00 | Outpatient (BNVA) | payer SELFPAY | PROVIDERS: PCP Registered Nurse; Visit Provider Nurse Practitioner Women's Health | DX: N87.1 Moderate cervical dysplasia (principal) | CPT/HCPCS: 87624 ==

== ENCOUNTER 2023-06-24 08:35 | Outpatient (CLI) | payer SELFPAY ==
--- NOTE | 2023-06-24 08:40 | MM_ITS ---
WS: [id number] VIEWS: MLO and CC views both breasts. 3D digital tomosynthesis is also included in this exam. Comparison made with prior exam of 08/12/2018, 09/13/2019, 06/19/2022. Findings: There was no sign of mass, architectural distortion or suspicious calcification in either breast. The re are scattered areas of fibroglandular density. Impression: MM/[place] [id number] BI-RADS: 2-Benign finding. FOLLOW-UP: 1 Year Follow-up This mammogram was also analyzed by the Computer Aided Detection System [employer].
== END 2023-06-24 08:36 | disposition home or self-care (01) ==
LOC: MOBLMAM 08:38
PROVIDERS: PCP Registered Nurse; Visit Provider Nurse Practitioner Women's Health
DX: Z12.31 Encounter for screening mammogram for malignant neoplasm of breast (principal)
CPT/HCPCS: 77063; 77067

== ENCOUNTER → 2024-04-27 08:55 | Outpatient (BNVA) | payer BC, MEDICAID, SELFPAY | PROVIDERS: PCP Registered Nurse; Visit Provider Registered Nurse | DX: R35.0 Frequency of micturition (principal) | CPT/HCPCS: 81000 ==

== ENCOUNTER 2024-07-21 15:53 | Outpatient (CLI) | payer BC, MEDICAID, SELFPAY ==
--- NOTE | 2024-07-21 16:00 | MM_ITS ---
WS: [id number] BILATERAL 3D TOMOSYNTHESIS DIGITAL SCREENING MAMMOGRAPHY WITH CAD CLINICAL INFORMATION: SCREENING HISTORY: Screening mammogram. No current complaints. COMPARISON: 2022 TECHNIQUE: Bilateral CC and MLO views. FINDINGS: Scattered fibroglandular densities bilaterally. No suspicious focal mass, asymmetry, calcifications, or architectural distortion. No evidence of malignancy. Few incidental punctate calcifications. MM/MM scr tomosynthesis [id number] IMPRESSION: DENSITY: There are scattered areas of fibroglandular density. BI-RADS: 2 - Benign. FOLLOW UP: 1 Year Follow-up Recommend return to annual screening mammography.
== END 2024-07-21 15:54 | disposition home or self-care (01) ==
LOC: MOBLMAM 15:54
PROVIDERS: PCP Registered Nurse; Visit Provider Registered Nurse
DX: Z12.31 Encounter for screening mammogram for malignant neoplasm of breast (principal)
CPT/HCPCS: 77063; 77067

== ENCOUNTER 2025-05-31 07:43 | Day surgery (SDC) | payer BC, MEDICAID, SELFPAY ==
[2025-05-31 07:59] VITALS: BP 125/103; PULSE 104; RESP 18; TEMP 36.1; O2SAT 96; BMI 32.8
--- NOTE | 2025-05-31 09:09 | ANES.PREANE2 ---
Pre-Anesthetic Assessment Height/Weight: Height 1.6 m Weight 83.915 kg Temp Pulse Resp BP Pulse Ox O2 Del Method 97.0 F L 104 H 18 125/103 96 Room Air 05/31/25 07:59 05/31/25 07:59 05/31/25 07:59 05/31/25 07:59 05/31/25 07:59 05/31/25 07:59 Preop Diagnosis: Screening Operation Date: 05/31/25 09:30 Proposed Procedures p Colonoscopy 93115 G0121, Z12.11(Not Applicable) - Robin Jorgensen MD Was Beta Cosme taken within 24 hours: N/A Was Clonidine taken within 24 hours: N/A Last intake: Intake Last Liquid Date 05/30/25 Last Liquid Time 21:00 Last Solid Date 05/29/25 Last Solid Time 19:00 Social No alcohol and No tobacco Exam alert, oriented x 3, clear to auscultation bilaterally and regular rate & rhythm Airway Submandibular: within normal limits Cervical ROM: within normal limits Mallampati: Class II Dentition: full History/ROS No significant history except as noted and No significant complaints Pulmonary None reported CV/HEM Hypertension None reported Hepatic None reported GI None reported Metabolic None reported Musc/skel None reported Neuropsych None reported Anesthetic Plan ASA status: 2 Anesthesia: Anesthesia Evaluation and MAC Risk of > 500 ml blood loss (7ml/kg in children): No Medications/Allergies Home Medications ?Medication ?Instructions ?Recorded ?Confirmed ?Last Taken ?Type cholecalciferol (vitamin D3) 50 50 mcg PO DAILY 03/08/21 05/27/25 2 Months Ago History mcg (2,000 unit) capsule ~03/27/25 lactobacillus combination no.9 4 4,000 mmu cells PO DAILY 03/08/21 05/27/25 05/27/25 History billion cell capsule (Adult 50 Plus Probiotic) multivitamin 1 tab PO DAILY 03/08/21 05/27/25 05/27/25 History omega-3 fatty acids 1,000 mg 1,000 mg PO DAILY 03/08/21 05/27/25 2 Months Ago History capsule (Fish Oil Concentrate) ~03/27/25 acetaminophen 500 mg tablet 1,000 mg PO BID PRN Pain 05/28/21 05/27/25 Unknown History (Tylenol Extra Strength) acyclovir 800 mg tablet 800 mg PO BID 7 days #14 tabs 04/26/25 05/27/25 3 Weeks Ago Rx ~05/06/25 baclofen 10 mg tablet 10 mg PO TID 05/27/25 05/27/25 05/27/25 History celecoxib 100 mg capsule 100 mg PO TID 05/27/25 05/27/25 05/27/25 History fluoxetine 20 mg capsule 20 mg PO DAILY 05/27/25 05/27/25 05/27/25 History Allergies Allergy/AdvReac Type Severity Reaction Status Date / Time No Known Allergies Allergy Verified 03/28/25 13:14 Current Medications Generic Name Dose Route Start Last Admin Trade Name Freq PRN Reason Stop Dose Admin Sodium Chloride 1,000 mls @ 15 mls/hr 05/31/25 07:51 05/31/25 08:06 Sodium Chloride 0.9% IV 06/01/25 07:50 15 mls/hr .Q24H PRN Administration COLONOSCOPY FLUIDS PFSH Anesthesia Medical History Depression No pertinent past medical history Patient denies history of PE/DVT/clotting disorders, asthma, lung, liver heart, thyroid, kidney disease, or diabetes. Primary care provider: RADHA Roman Hypertension Diagnosed with hypertension in 2017 and is controlled on medication managed by primary care provider Surgical History S/P hysterectomy 04/13/2020---Total abdominal hysterectomy with left salpingo-oophorectomy and right salpingectomy by Dr. Cruz at [facility]. -Pathology showed benign cervix, secretory endometrium without atypia, myometrium with adenomyosis and benign left ovary and fallopian tubes. Paratubal cysts present. Hx of toe surgery 02/25/2020 for fractured toe; ORIF S/P abdominoplasty (~12/24/19) Performed by Dr. Hernandez in [place] S/P LEEP (~02/04/19) LEEP procedure performed on 02/04/[address] Cruz at [facility] for persistent ANGELINE-1. Pathology showed ANGELINE-2 with positive margins S/P tonsillectomy Performed at the age of 4 S/P tubal ligation (~2005) Performed at the time of her third in 2005 Hx of section x 3 1996, 2001, 2005 Hx of bilateral breast reduction surgery In 2009 Family History Mother Hyperlipidemia Hypertension Grandfather Prostate cancer Paternal Brother Lupus Denies family history of Colon cancer Ovarian cancer Diabetes Heart disease Breast cancer Uterine cancer Thyroid disease Stroke Social History Smoking and tobacco/nicotine status: never used tobacco/nicotine
--- NOTE | 2025-05-31 09:10 | W.PM.OPSFHP ---
Same Day Surgery H&P Indication for Procedure/HPI DATE OF PROCEDURE: May 31, 2025 CHIEF COMPLAINT/INDICATIONFOR SURGICAL PROCEDURE: screening colonoscopy PREOP DIAGNOSIS: screening colonoscopy PLANNED PROCEDURE: Operation Date: 05/31/25 09:30 Proposed Procedures p Colonoscopy 33917 G0121, Z12.11(Not Applicable) - Robin Jorgensen MD Medications/Allergies* Home Medications ?Medication ?Instructions ?Recorded ?Confirmed ?Type cholecalciferol (vitamin D3) 50 50 mcg PO DAILY 03/08/21 05/27/25 History mcg (2,000 unit) capsule lactobacillus combination no.9 4 4,000 mmu cells PO DAILY 03/08/21 05/27/25 History billion cell capsule (Adult 50 Plus Probiotic) multivitamin 1 tab PO DAILY 03/08/21 05/27/25 History omega-3 fatty acids 1,000 mg 1,000 mg PO DAILY 03/08/21 05/27/25 History capsule (Fish Oil Concentrate) acetaminophen 500 mg tablet 1,000 mg PO BID PRN Pain 05/28/21 05/27/25 History (Tylenol Extra Strength) baclofen 10 mg tablet 10 mg PO TID 05/27/25 05/27/25 History celecoxib 100 mg capsule 100 mg PO TID 05/27/25 05/27/25 History fluoxetine 20 mg capsule 20 mg PO DAILY 05/27/25 05/27/25 History Allergies/Adverse Reactions Allergy/AdvReac Type Severity Reaction Status Date / Time No Known Allergies Allergy Verified 03/28/25 13:14 Current Medications: Generic Name Dose Route Start Last Admin Trade Name Freq PRN Reason Stop Dose Admin Sodium Chloride 1,000 mls @ 15 mls/hr 05/31/25 07:51 05/31/25 08:06 Sodium Chloride 0.9% IV 06/01/25 07:50 15 mls/hr .Q24H PRN Administration COLONOSCOPY FLUIDS Pertinent History/Comorbid Conditions* Medical History (Updated 03/16/25 @ 08:13 by RADHA Roman) Depression No pertinent past medical history Patient denies history of PE/DVT/clotting disorders, asthma, lung, liver heart, thyroid, kidney disease, or diabetes. Primary care provider: RADHA Roman Hypertension Diagnosed with hypertension in 2017 and is controlled on medication managed by primary care provider Surgical History (Updated 04/25/20 @ 16:11 by Bertin Kirk MD) S/P hysterectomy 04/13/2020---Total abdominal hysterectomy with left salpingo-oophorectomy and right salpingectomy by Dr. Cruz at [facility]. -Pathology showed benign cervix, secretory endometrium without atypia, myometrium with adenomyosis and benign left ovary and fallopian tubes. Paratubal cysts present. Hx of toe surgery 02/25/2020 for fractured toe; ORIF S/P abdominoplasty (~12/24/19) Performed by Dr. Hernandez in [place] S/P LEEP (~02/04/19) LEEP procedure performed on 02/04/[address] Cruz at [facility] for persistent ANGLEINE-1. Pathology showed ANGELINE-2 with positive margins S/P tonsillectomy Performed at the age of 4 S/P tubal ligation (~2005) Performed at the time of her third in 2005 Hx of section x 3 1996, 2001, 2005 Hx of bilateral breast reduction surgery In 2009 Family History (Updated 05/28/21 @ 14:11 by Noemí Almanza, RN) Prostate cancer Grandfather Paternal Lupus Brother Hyperlipidemia Mother Hypertension Mother Denies family history of Colon cancer Ovarian cancer Diabetes Heart disease Breast cancer Uterine cancer Thyroid disease Stroke Social History Smoking and tobacco/nicotine status: never used tobacco/nicotine Pertinent Exam Findings alert, oriented x 3, clear to auscultation bilaterally, regular rate & rhythm and procedure specific exam findings abdomen soft, nt, nd Recommendations Risks and benefits of procedure reviewed and Patient/family agree to proceed Surgery/Procedure today Coding Level of Care Code Acute Code for Chg Emerita
--- NOTE | 2025-05-31 09:40 | SUR.OPER ---
cecum time [id number]
[2025-05-31 09:45] VITALS: BP 115/77; PULSE 75; RESP 16; TEMP 36.7; O2SAT 98
[2025-05-31 10:05] VITALS: BP 108/86; PULSE 70; RESP 16; O2SAT 98
--- NOTE | 2025-05-31 10:20 | ANE.PACU2 ---
Inpatient post-anesthesia follow up: Airway intact: Yes Vital signs: Temperature 98.1 F Pulse Rate 70 Respiratory Rate 16 Blood Pressure 108/86 Pulse Oximetry 98 Oxygen Delivery Me thod Room Air Oxygen Flow Rate Fraction of Inspir ed Oxygen Hydration adequate: Yes Nausea and vomiting: No Pain level: 1 Mental status: Baseline
== END 2025-05-31 10:20 | disposition home or self-care (01) ==
PROVIDERS: PCP Registered Nurse; Visit Provider Student in an Organized Health Care Education/Training Program
PROC: 0DJD8ZZ Inspection of Lower Intestinal Tract, Via Natural or Artificial Opening Endoscopic (ICD-10-PCS; CPT 45378; principal; 2025-05-31 09:30)
DX: Z12.11 Encounter for screening for malignant neoplasm of colon (principal); K57.30 Diverticulosis of large intestine without perforation or abscess without bleeding; K63.89 Other specified diseases of intestine; K52.9 Noninfective gastroenteritis and colitis, unspecified; F32.A Depression, unspecified; I10 Essential (primary) hypertension
CPT/HCPCS: 45380; 88305; J2704; J7030

== ENCOUNTER 2025-08-25 10:39 | Outpatient (CLI) | payer BC, MEDICAID, SELFPAY ==
--- NOTE | 2025-08-25 10:43 | MM_ITS ---
WS: [id number] BILATERAL SCREENING DIGITAL TOMOSYNTHESIS MAMMOGRAM WITH CAD HISTORY: SCREENING COMPARISON: 07/21/2024, 06/24/2023, 03/10/2019 Bilateral CC and MLO views with tomosynthesis and synthetic mammography submitted. Computer aided detection analyzed. Breast composition: There are scattered areas of fibroglandular density. No suspicious masses, microcalcifications or architectural distortion. Asymmetry in the upper outer quadrant of the LEFT breast is a combination of stable nodules and overlying vessels. There is an ovoid nodule which may be a lymph node which is stable since 2019. MM/MM scr tomosynthesis [id number] IMPRESSION: BI-RADS: 2 - Benign. FOLLOW UP: 1 Year Follow-up
== END 2025-08-25 10:40 | disposition home or self-care (01) ==
PROVIDERS: PCP Registered Nurse; Visit Provider Registered Nurse
DX: Z12.31 Encounter for screening mammogram for malignant neoplasm of breast (principal); R92.323 Mammographic fibroglandular density, bilateral breasts; N64.89 Other specified disorders of breast
CPT/HCPCS: 77063; 77067